=== PATIENT | male | born 1960 | race Caucasian/White ===

== ENCOUNTER 2023-05-06 17:28 | Inpatient (IN) | payer MEDICARE, MEDICAID, SELFPAY ==
[2023-05-06] VITALS (9 sets, daily range): BP systolic 124–154; BP diastolic 72–104; PULSE 87–123; RESP 16–27; TEMP 36.8–37.9; O2SAT 94–99; BMI 29.3; BMI 28.1
--- NOTE | 2023-05-06 17:39 | CT_ITS ---
STUDY: CT BRAIN WITHOUT CONTRAST REASON FOR EXAM: Male, 63 years old. altered MS RADIATION DOSAGE (If Supplied By Facility): CTDIvol = ( 44.99 ) mGy, DLP = ( 947.97 ) mGycm TECHNIQUE: Transaxial CT imaging of the brain was performed without administration of intravenous contrast material. Individualized dose optimization techniques were used for this CT. COMPARISON: No relevant priors. FINDINGS: Normal soft tissue structures. Healed right parietal craniotomy with subjacent encephalomalacia. There is severe cerebral atrophy with widening of the extra-axial spaces and ventricular dilatation. There are areas of decreased attenuation within the white matter tracts of the supratentorial brain, consistent with microvascular disease changes. Normal basal ganglia and thalami. Normal brainstem. Normal cerebellum. There is no intracranial hemorrhage. There are no findings of an acute ischemic infarction. Normal visualized paranasal sinuses. CT/Brain/Head without Contrast IMPRESSION: Chronic involutional changes of the brain. Electronically Signed: Pete Ramos MD at 18:48 EDT ,
--- NOTE | 2023-05-06 17:39 | EKG12_ITS ---
Test Reason : Blood Pressure : / mmHG Vent. Rate : 123 BPM Atrial Rate : 123 BPM P-R Int : 150 ms QRS Dur : 088 ms QT Int : 312 ms P-R-T Axes : 023 -12 005 degrees QTc Int : 446 ms Sinus tachycardia Inferior infarct , age undetermined Abnormal ECG Confirmed by JAMES ARNOLD, CAPRI ([id number]), newspaper managing editor CHARLOTTE ORDAZ ([id number]) on 05/09/2023 9:05:55 AM Referred By: Confirmed By:CAPRI RAMIREZ MD
--- NOTE | 2023-05-06 17:39 | RAD_ITS ---
STUDY: X-RAY - ABDOMEN/PELVIS REASON FOR EXAM: Male, 63 years old. eval urinary stent placement TECHNIQUE: Single AP view of the abdomen / pelvis. COMPARISON: None. FINDINGS: Normal visualized lung bases. There is an unremarkable bowel gas pattern. 2 calcific opacities project in the left kidney consistent with left renal stones. Left ureteral stent. No definite ureteral stone. Inferior vena cava filter. Normal visualized osseous structures. RAD/Abdomen Single View (Portable) IMPRESSION: 2 left renal stone with ureteral stent but no definite ureteral stone. Electronically Signed: Pete Ramos MD at 18:49 EDT ,
--- NOTE | 2023-05-06 17:41 | EX.ED.DYSGE1 ---
HPI History of Present Illness Chief Complaint: Alt LOC Informant: patient and family (daughter) Onset/Context/Timing Onset: Days (6) Context: Gradual Onset Timing: Continuous Quality: confused, weak Location: all over Current Severity: Severe Maximum Severity: Severe Narrative Narrative: 63-year-old with liver cancer, hepatitis C, hepatitis B, and hepatic cirrhosis comes from a residential has been deemed terminal, daughter decided to start hospice care this morning, then patient and his confused state in the past 6 days said that he wanted compressions if they would be necessary, she felt guilty, and had him transported here to see if we could run some tests and find something that we could easily fix with regards to his new altered mental status. He has radiation beads not getting chemotherapy. He has had several traumatic brain hemorrhages in the past, potentially a stroke, he has left hemiparesis that is not new, but he was getting around in a wheelchair himself 2 weeks ago. This is a major change. Patient is not able to provide any history, when asked about pain he denies having any anywhere. He denies feeling sick to his stomach and denies feeling dyspneic. Past medical history also includes a couple of traumatic intracranial hemorrhages, and a recent ureteral stent being placed due to large renal/ureteral stone and a history of infection that was treated. Stent placed by Dr. Goodrich at [facility] in [place]. [facility] Medical History Acute kidney failure, unspecified Anxiety disorder, unspecified COVID-19 Essential (primary) hypertension Hemiplegia and hemiparesis following cerebral infarction affecting left non-dominant side Insomnia, unspecified Liver cell carcinoma Major depressive disorder, single episode, unspecified Obstructive and reflux uropathy, unspecified Other ascites Other disorders of urea cycle metabolism Other pancytopenia Personal history of traumatic brain injury Pneumonia, unspecified organism Presence of other specified functional implants Type 2 diabetes mellitus without complications Unspecified cirrhosis of liver Unspecified symptoms and signs involving cognitive functions following cerebral infarction Unspecified viral hepatitis B without hepatic coma Unspecified viral hepatitis C without hepatic coma Urinary tract infection, site not specified Home Medications alfuzosin 10 mg tablet,extended release 24 hr (Uroxatral) 10 mg PO DAILY 05/06/23 [History Last Taken Unknown] buspirone 5 mg tablet 5 mg PO BID 05/06/23 [History Last Taken Unknown] escitalopram oxalate 10 mg tablet (Lexapro) 10 mg PO DAILY 05/06/23 [History Last Taken Unknown] furosemide 20 mg tablet 20 mg PO BID 05/06/23 [History Last Taken Unknown] insulin glargine 100 unit/mL (3 mL) subcutaneous pen (Lantus Solostar U-100 Insulin) 40 unit subcut DAILY 05/06/23 [History Last Taken Unknown] lactulose 10 gram/15 mL oral solution 30 ml PO .qid 05/06/23 [History Last Taken Unknown] lisinopril 20 mg tablet 20 mg PO BID 05/06/23 [History Last Taken Unknown] lorazepam 0.5 mg tablet (Ativan) 0.5 mg PO Q4H PRN anxiety 05/06/23 [History Last Taken Unknown] metformin 1,000 mg tablet 1,000 mg PO BID 05/06/23 [History Last Taken Unknown] mirtazapine 15 mg tablet (Remeron) 7.5 mg PO DAILY 05/06/23 [History Last Taken Unknown] oxycodone 5 mg tablet 5 mg PO Q6H PRN pain/ sob 05/06/23 [History Last Taken Unknown] potassium chloride 20 mEq tablet,extended release 20 meq PO DAILY 05/06/23 [History Last Taken Unknown] tamsulosin 0.4 mg capsule 0.4 mg PO QHS 05/06/23 [History Last Taken Unknown] trazodone 50 mg tablet 50 mg PO QHS 05/06/23 [History Last Taken Unknown] Allergy/AdvReac Type Severity Reaction Status Date / Time acetaminophen [From Tylenol] AdvReac PT UNABLE Verified 05/06/23 17:30 TO RESPOND-NEEDS F/U codeine AdvReac PT UNABLE Verified 05/06/23 17:30 TO RESPOND-NEEDS F/U Social History Smoking Status: Smoker, status unknown EXAM Physical Exam Const Vital Signs: 05/06/23 17:30 05/06/23 17:53 05/06/23 18:33 Temperature 100.2 F H 98.5 F Temperature Source Oral Temporal Pulse Rate 123 H 119 H Respiratory Rate 21 H 22 H Blood Pressure 154/104 H 141/88 H Blood Pressure Mean 120 105 Pulse Ox 96 95 97 Oxygen Delivery Method Room Air Room Air Room Air Positive well nourished and well developed Constitutional Narrative: Appears very weak and altered, eyes are open, follows commands, confused, GCS 14. General Appearance ED: well developed HEENT Reports dry mucous membranes normocephalic and atraumatic Mouth ED: Yes dry mucous membranes Mouth: dry mucous membranes Eyes PERRL and EOMs intact bilaterally Neck full ROM and supple Resp normal respiratory effort and clear to auscultation bilaterally Cardio regular rate, regular rhythm and no murmurs Rate: tachycardic GI non-tender GI Narrative: Distended, soft Auscultation: normoactive bowel sounds Palpation: soft Back/Spine no CVA tenderness General Back: other FROM Extremity normal to inspection General Extremety ED: Negative for edema, pulses abnormal or tenderness General Extremity: Negative for edema or pulses abnormal Neuro CN's II-XII intact bilaterally and no sensory deficits noted Neuro Narrative: Not able to move left arm or left leg, he is able to move the right arm and leg but not able to hold up against gravity on either 1. Sensorium / Orientation: awake, alert and orientation impaired Psych Psych Narrative: Flat affect Skin no rashes or lesions noted and no wounds General Skin Exam: jaundice MDM MDM MDM Narrative Medical decision making narrative: Septic work-up obtained in addition to an ammonia level which is normal, and a CT of the head, I reviewed the images and the report are basically negative for any acute, and I agree with it. Chest x-ray 1 view shows some atelectasis in the left lower lobe. No consolidation or infiltrate to my interpretation. Radiology in agreement. Also performed a KUB evaluating stent, it is in good place, my interpretation of 1 view. The rest of his work-up basically is consistent with a urinary tract infection, slightly elevated lactate, slightly abnormal creatinine unknown what his baseline is he does not have old labs here, he does have a trend toward a leftward shift on his white blood count at the high end of normal, and the rest of his blood counts are okay. He does show signs of malnutrition and hyperbilirubinemia which I am sure is not new given his history of cirrhosis. Started on Rocephin. Cultures obtained. Given 500 cc of fluid, I do not think he needs more than that he is not hypotensive and his heart rate is improved. He is clinically stable. Discussed with daughter ERIC. She is not exactly sure if she wants him to be on hospice or not. She is concerned that since he has an infection, he may get better and prefers that he be admitted. Hospitalist requested I discussed with urology, we do not have urology on-call here tia (will be available in the morning) so I discussed with Dr. Goodrich's partner at [facility] who was on-call. He states specifically the stent is not to be removed since that we could cause a ureteral obstruction due to the stone, and because the infection to get worse, he recommends IV antibiotics and close outpatient follow-up when his infection is better. Lab Data Attestation: I reviewed the patient's lab results. Labs: Laboratory Results - last 24 hr 05/06/23 05/06/23 17:48 19:25 WBC 10.5 RBC 3.54 L Hgb 11.1 L Hct 34.1 L MCV 96.3 H MCH 31.4 MCHC 32.6 RDW Std Deviation 56.4 H RDW Coeff of Ani 15.9 H Plt Count 188 MPV 9.0 Immature Gran % (Auto) 0.600 Neut % (Auto) 85.7 H Lymph % (Auto) 3.5 L [place] % (Auto) 9.1 Eos % (Auto) 0.8 Baso % (Auto) 0.3 Absolute Neuts (auto) 9.0 H Absolute Lymphs (auto) 0.37 L Nucleated RBC % 0 Differential Comment SCANNED PT 18.4 H INR 1.5 APTT 34.0 Sodium 135 L Potassium 4.1 Chloride 106 Carbon Dioxide 25.0 Anion Gap 4 L BUN 18 Creatinine 1.34 H Estim Creat Clear Calc 53.17 Est GFR (MDRD) Af Amer 69 Est GFR (MDRD) Non-Af 57 L BUN/Creatinine Ratio 13.4 Glucose 169 H Lactic Acid 2.1 H* Calcium 9.2 Total Bilirubin 2.70 H AST 41 H ALT 26 Alkaline Phosphatase 106 Ammonia 14.0 Troponin I High Sens 6 Total Protein 7.5 Albumin 1.8 L Globulin 5.7 H Albumin/Globulin Ratio 0.3 L Urine Color Yellow Urine Clarity Cloudy Urine pH 6.5 Ur Specific [place] 1.015 Urine Protein 100 H Urine Glucose (UA) Normal Urine Ketones Negative Urine Occult Blood 250 H Urine Nitrite Positive H Urine Bilirubin Negative Urine Urobilinogen 4 H Ur Leukocyte Esterase 500 H Urine RBC 0 SEEN Urine WBC >100 SEEN Ur Squamous Epith Cells 0 SEEN Urine Bacteria 0 SEEN Urine Mucus 0 SEEN Radiography Diagnostic Testing: Clinical Impression(s) from Imaging Studies Brain CT 05/06/23 17:39 IMPRESSION: Chronic involutional changes of the brain. Electronically Signed: Pete Ramos MD at 18:48 EDT Reading Location ID and State: [id number] / [employer] , Service support , KUB X-Ray 05/06/23 17:39 IMPRESSION: 2 left renal stone with ureteral stent but no definite ureteral stone. Electronically Signed: Pete Ramos MD at 18:49 EDT Reading Location ID and State: [id number] / [employer] , Service support , Chest X-Ray 05/06/23 18:12 IMPRESSION: Left lower lobe discoid atelectasis or scarring. Electronically Signed: Pete Ramos MD at 18:50 EDT Reading Location ID and State: [id number] / [employer] , Service support , Rhythm Strip Rhythm Strip: Sinus Tach Rate: 120 Ectopy: None EKG Initial EKG: Attestation: I personally reviewed and interpreted this EKG as follows: Interpretation: No Acute Injury Pattern and Sinus Tachycardia (otherwise unremarkable) Management Discussion w/another healthcare provider: Hospitalist Discharge Plan Dx/Rx/DC Orders Clinical Impression: Complicated urinary tract infection, Hepatic cirrhosis, Acute metabolic encephalopathy Disposition Disposition: Acute Care [facility]
--- NOTE | 2023-05-06 17:46 | NURSING ---
NO OLD EKGS
[2023-05-06 18:01] LABS: Absolute Lymphocyte Count 0.37 X10^3/uL (0.83-4.51); Basophil# 0.03 X10^3/uL; Basophil% 0.3 % (0-1); Eosinophil# 0.08 X10^3/uL; Eosinophils% 0.8 % (0-5); Hematocrit 34.1 % (40-54); Hemoglobin 11.1 g/dL (13.0-16.5); Lymphocyte # 0.37 X10^3/ul (0.83-4.51); Lymphocyte % 3.5 % (19-41); Mean Corp Hgb Conc 32.6 g/dL (32-36); Mean Corpuscular Hgb 31.4 pg (27.0-32.0); Mean Corpuscular Volume 96.3 fL (80-94); Monocyte# 0.96 X10^3/uL; Monocyte% 9.1 % (0-10); NRBC Flagged by Analyzer 0 % (0-5); Neutrophil # 9.02 X10^3/uL (2.7-7.7); Neutrophil % 85.7 % (47-70); POSITIVE DIFFERENTIAL YES; Platelet Count 188 K/mm3 (150-450); RBC Distribution Width CV 15.9 % (11.6-14.6); RBC Distribution Width SD 56.4 fl (35.1-43.9); Red Blood Count 3.54 M/mm3 (4.6-6.2); White Blood Count 10.5 K/mm3 (4.4-11.0)
[2023-05-06 18:02] LABS: Differential Indicated SCAN CRITERIA MET
[2023-05-06 18:10] LABS: International Normalized Ratio 1.5; Prothrombin Time (Protime)PT. 18.4 SECONDS (11.7-14.9)
--- NOTE | 2023-05-06 18:12 | RAD_ITS ---
STUDY: X-RAY CHEST REASON FOR EXAM: Male, 63 years old. fever TECHNIQUE: Single AP portable view of the chest. COMPARISON: None. FINDINGS: Linear opacity in the lower left lung consistent with discoid atelectasis or scarring. Slightly elevated right hemidiaphragm. Normal size heart. Normal mediastinum and brunilda. Normal visualized pulmonary arteries. Normal visualized aortic arch and descending thoracic aorta. Normal visualized thoracic spine. Normal visualized ribs, clavicles, and shoulders. There is no demonstrated abnormality of the visualized soft tissue structures of the upper abdomen. RAD/Chest 1 View (Portable) IMPRESSION: Left lower lobe discoid atelectasis or scarring. Electronically Signed: Pete Raoms MD at 18:50 EDT ,
[2023-05-06 18:23] LABS: ALB/GLOB Ratio 0.3 RATIO (0.9-2.4); AST(SGOT) 41 U/L (15-37); Alanine Aminotransfer ALT/SGPT 26 U/L (16-61); Albumin, Serum 1.8 g/dL (3.2-5.0); Alkaline Phosphatase 106 U/L (45-117); Anion Gap 4 (5-15); BUN 18 mg/dL (7-18); BUN/Creat Ratio 13.4 RATIO (10-20); Calcium,Total 9.2 mg/dL (8.5-10.1); Chloride 106 mmol/L (98-107); Creatinine, Serum 1.34 mg/dL (0.70-1.30); EST Glomerular Filtration Rate 57 mL/min (>60); Est Glom Filt Rate - Afr Amer 69 mL/min (>60); Estimated Creatinine Clearance 53.17 ml/min; Globulin 5.7 g/dL (2.2-4.2); Glucose 169 mg/dL (74-106); Potassium 4.1 mmol/L (3.5-5.1); Protein, Total 7.5 g/dL (6.4-8.2); Sodium Level 135 mmol/L (136-145); Troponin-I HS 6 pg/mL (3.0-78.0)
[2023-05-06 18:28] LABS: Lactic Acid 2.1 mmol/L (0.4-1.9)
[2023-05-06 18:39] LABS: Differential Comment SCANNED
[2023-05-06 19:27] LABS: Bacteria 0 SEEN /hpf (None Seen); Mucous, Urine 0 SEEN /hpf (<or=2+); Red Blood Cells-Urine 0 SEEN /hpf (0-5); Squamous Epithelial Cells - UA 0 SEEN /hpf (0-5)
--- NOTE | 2023-05-06 19:29 | ED.RN ---
hospice called in for patient update.
[2023-05-06 19:31] LABS: Color, Urine Yellow (Yellow); Glucose, Dipstick Normal (Normal); Ketone-Dipstick Negative (Negative); Leukocyte Esterase-Dipstick 500 /ul (Negative); Nitrite-Dipstick Positive (Negative); Occult Blood-Urine 250 /ul (Negative); Protein-Dipstick 100 mg/dl (Negative); Specific Gravity, Urine 1.015 (1.002-1.030); Urine Bilirubin Dipstick Negative (Negative); Urine Clarity Cloudy (Clear); Urine Urobilinogen 4 mg/dl (Normal); Urine pH 6.5 (5.0 - 8.0)
[2023-05-06 19:39] LABS: White Blood Cells >100 SEEN /hpf (0-5)
--- NOTE | 2023-05-06 20:09 | PCM.HP.STD ---
HPI - General General Date of Admission: 05/06/23 Date of Service: 05/06/23 Chief Complaint: weakness HPI Narrative CHUCHO MCCORMICK, is a 63 M with a significant history of type 2 diabetes; liver cancer status post repeat beads radiation who was evaluated by hospice on the same day of presentation but stated that he wanted to be a full code presents to the emergency department with 1 week history of progressive worsening weakness. Associated with her symptoms is lethargy difficulty breathing is worse out. Also reportedly patient is not eating. However he is drinking. About a month ago he had a stent placed in his urinary system. Also he had a couple of stones in his urinary stent that needed to be blasted. Typically he is transferred by pivoting but per daughter who was at bedside stated that patient is too weak to pivot at this time. [facility] Medical History Acute kidney failure, unspecified Anxiety disorder, unspecified COVID-19 Essential (primary) hypertension Hemiplegia and hemiparesis following cerebral infarction affecting left non-dominant side Insomnia, unspecified Liver cell carcinoma Major depressive disorder, single episode, unspecified Obstructive and reflux uropathy, unspecified Other ascites Other disorders of urea cycle metabolism Other pancytopenia Personal history of traumatic brain injury Pneumonia, unspecified organism Presence of other specified functional implants Type 2 diabetes mellitus without complications Unspecified cirrhosis of liver Unspecified symptoms and signs involving cognitive functions following cerebral infarction Unspecified viral hepatitis B without hepatic coma Unspecified viral hepatitis C without hepatic coma Urinary tract infection, site not specified Home Medications alfuzosin 10 mg tablet,extended release 24 hr (Uroxatral) 10 mg PO DAILY 05/06/23 [History Last Taken Unknown] buspirone 5 mg tablet 5 mg PO BID 05/06/23 [History Last Taken Unknown] escitalopram oxalate 10 mg tablet (Lexapro) 10 mg PO DAILY 05/06/23 [History Last Taken Unknown] furosemide 20 mg tablet 20 mg PO BID 05/06/23 [History Last Taken Unknown] insulin glargine 100 unit/mL (3 mL) subcutaneous pen (Lantus Solostar U-100 Insulin) 40 unit subcut DAILY 05/06/23 [History Last Taken Unknown] lactulose 10 gram/15 mL oral solution 30 ml PO .qid 05/06/23 [History Last Taken Unknown] lisinopril 20 mg tablet 20 mg PO BID 05/06/23 [History Last Taken Unknown] lorazepam 0.5 mg tablet (Ativan) 0.5 mg PO Q4H PRN anxiety 05/06/23 [History Last Taken Unknown] metformin 1,000 mg tablet 1,000 mg PO BID 05/06/23 [History Last Taken Unknown] mirtazapine 15 mg tablet (Remeron) 7.5 mg PO DAILY 05/06/23 [History Last Taken Unknown] oxycodone 5 mg tablet 5 mg PO Q6H PRN pain/ sob 05/06/23 [History Last Taken Unknown] potassium chloride 20 mEq tablet,extended release 20 meq PO DAILY 05/06/23 [History Last Taken Unknown] tamsulosin 0.4 mg capsule 0.4 mg PO QHS 05/06/23 [History Last Taken Unknown] trazodone 50 mg tablet 50 mg PO QHS 05/06/23 [History Last Taken Unknown] Allergy/AdvReac Type Severity Reaction Status Date / Time acetaminophen [From Tylenol] AdvReac PT UNABLE Verified 05/06/23 17:30 TO RESPOND-NEEDS F/U codeine AdvReac PT UNABLE Verified 05/06/23 17:30 TO RESPOND-NEEDS F/U Family History Other Eye disease Hypertension Surgical History H/O craniotomy Social History Smoking Status: Smoker, status unknown ROS ROS Narrative Pertinent positives and pertinent negatives as noted in HPI. All other systems were reviewed and are negative Vital Signs Vital Signs Vital Signs: 05/06/23 17:30 05/06/23 17:53 05/06/23 18:33 Temperature 100.2 F H 98.5 F Temperature Source Oral Temporal Pulse Rate 123 H 119 H Respiratory Rate 21 H 22 H Blood Pressure 154/104 H 141/88 H Blood Pressure Mean 120 105 Pulse Ox 96 95 97 Oxygen Delivery Method Room Air Room Air Room Air Weight Weight: 87.5 kg Body Mass Index (BMI) 29.3 Physical Exam Narrative Physical exam: General: Sickly looking. Head: Normocephalic, atraumatic, no tenderness Eyes: Vision is grossly intact. EOMI ENT, no trauma, moist mucous membranes, no rhinorrhea Neck: Nontender, No thyromegaly. CVS: Regular rate and rhythm. S1-S2 present. No murmur, gallop or rub. Respiratory : clear to auscultation bilaterally, chest wall nontender Abdomen: Soft, nontender, nondistended, normal bowel sounds, no masses : Deferred Extremities: Nontender full range of motion, no trauma Skin: Normal color, no trauma, abrasions Neuro: Lethargic. Does not answer many questions. Psychiatry: Lethargic and not interactive Results Lab / Micro Data 05/07/23 05:20 05/07/23 05:20 Labs: Laboratory Results - last 24 hr 05/06/23 17:48: WBC 10.5, RBC 3.54 L, Hgb 11.1 L, Hct 34.1 L, MCV 96.3 H, MCH 31.4, MCHC 32.6, RDW Std Deviation 56.4 H, RDW Coeff of Ani 15.9 H, Plt Count 188, MPV 9.0, Immature Gran % (Auto) 0.600, Neut % (Auto) 85.7 H, Lymph % (Auto) 3.5 L, [place] % (Auto) 9.1, Eos % (Auto) 0.8, Baso % (Auto) 0.3, Absolute Neuts (auto) 9.0 H, Absolute Lymphs (auto) 0.37 L, Nucleated RBC % 0, Differential Comment SCANNED, PT 18.4 H, INR 1.5, APTT 34.0, Sodium 135 L, Potassium 4.1, Chloride 106, Carbon Dioxide 25.0, Anion Gap 4 L, BUN 18, Creatinine 1.34 H, Estim Creat Clear Calc 53.17, Est GFR (MDRD) Af Amer 69, Est GFR (MDRD) Non-Af 57 L, BUN/Creatinine Ratio 13.4, Glucose 169 H, Lactic Acid 2.1 H*, Calcium 9.2, Total Bilirubin 2.70 H, AST 41 H, ALT 26, Alkaline Phosphatase 106, Ammonia 14.0, Troponin I High Sens 6, Total Protein 7.5, Albumin 1.8 L, Globulin 5.7 H, Albumin/Globulin Ratio 0.3 L 05/06/23 19:25: Urine Color Yellow, Urine Clarity Cloudy, Urine pH 6.5, Ur Specific [place] 1.015, Urine Protein 100 H, Urine Glucose (UA) Normal, Urine Ketones Negative, Urine Occult Blood 250 H, Urine Nitrite Positive H, Urine Bilirubin Negative, Urine Urobilinogen 4 H, Ur Leukocyte Esterase 500 H, Urine RBC 0 SEEN, Urine WBC >100 SEEN, Ur Squamous Epith Cells 0 SEEN, Urine Bacteria 0 SEEN, Urine Mucus 0 SEEN Micro: Microbiology 05/06/23 17:47 Nasal Secretion SARS-CoV-2 & FLU Antigen (Rapid) - Final Rhythm Strip Rhythm Strip: Sinus Tach Rate: 120 Ectopy: None Radiology Impression Brain CT 05/06/23 17:39 IMPRESSION: Chronic involutional changes of the brain. Electronically Signed: Pete Ramos MD at 18:48 EDT Reading Location ID and State: [id number] , Service support , KUB X-Ray 05/06/23 17:39 IMPRESSION: 2 left renal stone with ureteral stent but no definite ureteral stone. Electronically Signed: Pete Ramos MD at 18:49 EDT Reading Location ID and State: [email or web address] / [employer] , Service support , Chest X-Ray 05/06/23 18:12 IMPRESSION: Left lower lobe discoid atelectasis or scarring. Electronically Signed: Pete Ramos MD at 18:50 EDT Reading Location ID and State: [id number] / [employer] , Service support , Assessment & Plan Assessment/Plan (1) Sepsis: QUALIFIERS: Sepsis acute organ dysfunction status: with acute organ dysfunction Sepsis type: sepsis due to unspecified organism Severe sepsis acute organ dysfunction type: encephalopathy Severe sepsis shock status: without septic shock Qualified Code(s): A41.9 - Sepsis, unspecified organism; R65.20 - Severe sepsis without septic shock; G93.40 - Encephalopathy, unspecified (2) Encephalopathy acute: (3) UTI (urinary tract infection): QUALIFIERS: Hematuria presence: without hematuria Urinary tract infection type: acute cystitis Qualified Code(s): N30.00 - Acute cystitis without hematuria PLAN: Plan Sepsis/acute infectious encephalopathy The patient presented with sepsis due to( UTI) with acute sepsis related organ dysfunction as evidenced by (lactic acidosis). SIRS criteria: Respiratory rate more than 20 Heart rate more than 90 organ dysfunction: Lactic acid of more than 2 (2.1 patient case) Bilirubin more than 2 mg/dL. Patient's bilirubin is 2.70. Of note patient has hepatic cancer. No previous records to compare with. INR is borderline at 1.5. Urinalysis abnormal. Urine culture ordered emergency department, follow. Trend lactates. Blood cultures ordered emergency department, trend. Rocephin started emergency department and continued Ammonia level is normal, trend. Hold all sedating medications. Keep patient n.p.o. until mentation improves. JOEL Hold home Lasix. IV fluids. Avoid nephrotoxins Trend BMP Diabetes mellitus Blood glucose is stable. Hold home basal insulin. Basal insulin Adjusted Monitor Accu-Cheks Correction scale insulin ordered. DVT prophylaxis: Subcu Lovenox ordered. Time spent in the patient's overall evaluation,decision-making process, review of diagnostic data, adjustment of management, discussion with other providers, nursing and ancillary staff involved in patient's care documentation, 64 minutes. Charges/Coding Visit Charges Inpatient E&M: 87606 [facility] L3
--- NOTE | 2023-05-06 20:16 | ED.RN ---
spoke with Melvi DOTSON at [facility]- update on pt being admitted-also RN reports pt as Full Code.
[2023-05-06] MEDS: Ceftriaxone 1 GM/50 ML BAG IV (20:17)
[2023-05-06 21:56] LABS: Reflex Lactate? Y
[2023-05-06 22:12] LABS: LDH 212 U/L (87-241)
[2023-05-06] MEDS: 0.9% Normal Saline 1,000 ML 75 ML IV (22:45)
[2023-05-06] MEDS: Insulin Lispro 100 UNIT/ML INSULN.PEN SC (22:52)
[2023-05-06 23:10] LABS: Bedside Glucose 163 mg/dL (74-106)
[2023-05-07] VITALS (11 sets, daily range): BP systolic 102–141; BP diastolic 65–87; PULSE 99–125; RESP 16–26; TEMP 36.3–37.1; O2SAT 94–100; BMI 28.1
[2023-05-07 05:31] LABS: Absolute Lymphocyte Count 0.31 X10^3/uL (0.83-4.51); Absolute Neutrophil Count 7.8 X10^3/uL (2.0-7.7); Basophil# 0.04 X10^3/uL; Basophil% 0.4 % (0-1); Eosinophil# 0.09 X10^3/uL; Hematocrit 33.9 % (40-54); Hemoglobin 10.7 g/dL (13.0-16.5); Lymphocyte # 0.31 X10^3/ul (0.83-4.51); Lymphocyte % 3.4 % (19-41); Mean Corp Hgb Conc 31.6 g/dL (32-36); Mean Corpuscular Hgb 30.7 pg (27.0-32.0); Mean Corpuscular Volume 97.1 fL (80-94); Mean Platelet Vol. 9.1 fl (6.2-12.0); Monocyte# 0.84 X10^3/uL; Monocyte% 9.2 % (0-10); NRBC Flagged by Analyzer 0 % (0-5); Neutrophil # 7.77 X10^3/uL (2.7-7.7); Neutrophil % 85.2 % (47-70); POSITIVE DIFFERENTIAL YES; Platelet Count 159 K/mm3 (150-450); RBC Distribution Width CV 16.1 % (11.6-14.6); RBC Distribution Width SD 57.6 fl (35.1-43.9); Red Blood Count 3.49 M/mm3 (4.6-6.2); White Blood Count 9.1 K/mm3 (4.4-11.0)
[2023-05-07 05:33] LABS: Differential Indicated SCAN CRITERIA MET
[2023-05-07 05:56] LABS: ALB/GLOB Ratio 0.3 RATIO (0.9-2.4); AST(SGOT) 33 U/L (15-37); Alanine Aminotransfer ALT/SGPT 22 U/L (16-61); Albumin, Serum 1.6 g/dL (3.2-5.0); Alkaline Phosphatase 97 U/L (45-117); Anion Gap 3 (5-15); BUN 20 mg/dL (7-18); BUN/Creat Ratio 17.5 RATIO (10-20); Calcium,Total 8.9 mg/dL (8.5-10.1); Chloride 111 mmol/L (98-107); Creatinine, Serum 1.14 mg/dL (0.70-1.30); EST Glomerular Filtration Rate 69 mL/min (>60); Est Glom Filt Rate - Afr Amer 83 mL/min (>60); Globulin 5.4 g/dL (2.2-4.2); Glucose 178 mg/dL (74-106); Potassium 4.4 mmol/L (3.5-5.1); Sodium Level 138 mmol/L (136-145); Thyroid Stim Hormone (TSH) 1.19 uIU/mL (0.358-3.74)
[2023-05-07] MEDS: CHLORHEXIDINE GLUC 2% CLOTH 1 EACH TOWELETTE TOPICAL (05:58)
[2023-05-07 06:02] LABS: Anisocytosis 1+; Macrocytosis 1+
--- NOTE | 2023-05-07 07:36 | PCM.PN.HOSP ---
Reason for Visit Reason for Visit: Diagnoses Sepsis, unspecified organism (05/06/23) Encephalopathy, unspecified (05/06/23) Acute cystitis without hematuria (05/06/23) Severe sepsis without septic shock (05/06/23) Objective Data Objective Data Vital Signs: Vital Signs Temp Pulse Resp BP Pulse Ox O2 Del Method 97.9 F 105 H 26 H 141/76 H 94 Room Air 05/07/23 04:00 05/07/23 07:04 05/07/23 07:04 05/07/23 07:04 05/07/23 07:04 05/07/23 07:04 Oxygen Delivery Method Room Air Weight: 185 lb 3.013 oz Body Mass Index (BMI) 28.1 Intake & Output: Intake and Output for Last 24 Hours 05/05/23 05/06/23 05/07/23 23:59 23:59 23:59 Intake Total 550 / 550 747.5 / 747.5 Output Total 150 / 150 Balance 550 / 550 597.5 / 597.5 Lab / Micro Data 05/07/23 05:20 05/07/23 05:20 Labs: Laboratory Results - last 24 hr 05/06/23 17:48: WBC 10.5, RBC 3.54 L, Hgb 11.1 L, Hct 34.1 L, MCV 96.3 H, MCH 31.4, MCHC 32.6, RDW Std Deviation 56.4 H, RDW Coeff of Ani 15.9 H, Plt Count 188, MPV 9.0, Immature Gran % (Auto) 0.600, Neut % (Auto) 85.7 H, Lymph % (Auto) 3.5 L, [place] % (Auto) 9.1, Eos % (Auto) 0.8, Baso % (Auto) 0.3, Absolute Neuts (auto) 9.0 H, Absolute Lymphs (auto) 0.37 L, Nucleated RBC % 0, Differential Comment SCANNED, PT 18.4 H, INR 1.5, APTT 34.0, Sodium 135 L, Potassium 4.1, Chloride 106, Carbon Dioxide 25.0, Anion Gap 4 L, BUN 18, Creatinine 1.34 H, Estim Creat Clear Calc 53.17, Est GFR (MDRD) Af Amer 69, Est GFR (MDRD) Non-Af 57 L, BUN/Creatinine Ratio 13.4, Glucose 169 H, Lactic Acid 2.1 H*, Calcium 9.2, Total Bilirubin 2.70 H, AST 41 H, ALT 26, Alkaline Phosphatase 106, Ammonia 14.0, Troponin I High Sens 6, Total Protein 7.5, Albumin 1.8 L, Globulin 5.7 H, Albumin/Globulin Ratio 0.3 L 05/06/23 19:25: Urine Color Yellow, Urine Clarity Cloudy, Urine pH 6.5, Ur Specific Owen 1.015, Urine Protein 100 H, Urine Glucose (UA) Normal, Urine Ketones Negative, Urine Occult Blood 250 H, Urine Nitrite Positive H, Urine Bilirubin Negative, Urine Urobilinogen 4 H, Ur Leukocyte Esterase 500 H, Urine RBC 0 SEEN, Urine WBC >100 SEEN, Ur Squamous Epith Cells 0 SEEN, Urine Bacteria 0 SEEN, Urine Mucus 0 SEEN 05/06/23 21:26: Lactate Dehydrogenase 212 05/06/23 22:30: Lactic Acid 2.0 05/06/23 22:48: POC Glucose 163 H 05/07/23 05:20: WBC 9.1, RBC 3.49 L, Hgb 10.7 L, Hct 33.9 L, MCV 97.1 H, MCH 30.7, MCHC 31.6 L, RDW Std Deviation 57.6 H, RDW Coeff of Ani 16.1 H, Plt Count 159, MPV 9.1, Immature Gran % (Auto) 0.800, Neut % (Auto) 85.2 H, Lymph % (Auto) 3.4 L, [place] % (Auto) 9.2, Eos % (Auto) 1.0, Baso % (Auto) 0.4, Absolute Neuts (auto) 7.8 H, Absolute Lymphs (auto) 0.31 L, Nucleated RBC % 0, Anisocytosis 1+, Macrocytosis 1+, Sodium 138, Potassium 4.4, Chloride 111 H, Carbon Dioxide 24.0, Anion Gap 3 L, BUN 20 H, Creatinine 1.14, Estim Creat Clear Calc 62.50, Est GFR (MDRD) Af Amer 83, Est GFR (MDRD) Non-Af 69, BUN/Creatinine Ratio 17.5, Glucose 178 H, Calcium 8.9, Total Bilirubin 2.20 H, AST 33, ALT 22, Alkaline Phosphatase 97, Total Protein 7.0, Albumin 1.6 L, Globulin 5.4 H, Albumin/Globulin Ratio 0.3 L, TSH 1.19 Micro: Microbiology 05/06/23 17:47 Nasal Secretion SARS-CoV-2 & FLU Antigen (Rapid) - Final Radiography Diagnostic Testing: Radiology Impression Brain CT 05/06/23 17:39 IMPRESSION: Chronic involutional changes of the brain. Electronically Signed: Pete Ramos MD at 18:48 EDT Reading Location ID and State: [id number] / [employer] Tel , Service support , KUB X-Ray 05/06/23 17:39 IMPRESSION: 2 left renal stone with ureteral stent but no definite ureteral stone. Electronically Signed: Pete Ramos MD at 18:49 EDT Reading Location ID and State: [id number] / [employer] Tel , Service support , Chest X-Ray 05/06/23 18:12 IMPRESSION: Left lower lobe discoid atelectasis or scarring. Electronically Signed: Pete Ramos MD at 18:50 EDT Reading Location ID and State: [id number] / [employer] Tel , Service support , Rhythm Strip Rhythm Strip: Sinus Tach Rate: 120 Ectopy: None Physical Exam Narrative History is limited as patient still confused, he states leave me alone. He easily gets irritable, angry, thrusting on the bed. He states his belly hurts and in fact everywhere including legs hurts. General: Awake but lethargy. Confused and disoriented to time and place. Not cooperative for exam. HEENT: Mild icterus. Atraumatic, PERRLA, EOMI, Normocephalic Oral: Oral mucosa dry. No Gingival or Mucosal Lesions/ Ulcerations Neck: Supple, No JVD, Negative Carotid Bruits Lungs: Air entry diminished in bilateral lung bases. No crepitation/rhonchi Cardiovascular: Sinus tachycardia, Normal S1, Normal S2, No murmurs Abdomen: Bowel Sounds sluggish, soft, mild nonspecific tenderness. Distended with ascites, not cooperative for fluid thrill : Voiding urine. 150 mill. No renal angle tenderness. No suprapubic tenderness. Extremities: Bilateral 2+ pitting below knee legs edema Skin: No rashes, No breakdown Musculoskeletal: Tenderness in both lower legs, ROM limited not cooperative but Neurological: Confused disoriented, detailed neuro exam unobtainable Psych/Mental Status: Soft whispering voice. Flat affect. Assessment & Plan Assessment/Plan (1) Sepsis: QUALIFIERS: Sepsis acute organ dysfunction status: with acute organ dysfunction Sepsis type: sepsis due to unspecified organism Severe sepsis acute organ dysfunction type: encephalopathy Severe sepsis shock status: without septic shock Qualified Code(s): A41.9 - Sepsis, unspecified organism; R65.20 - Severe sepsis without septic shock; G93.40 - Encephalopathy, unspecified (2) Encephalopathy acute: (3) UTI (urinary tract infection): QUALIFIERS: Hematuria presence: without hematuria Urinary tract infection type: acute cystitis Qualified Code(s): N30.00 - Acute cystitis without hematuria PLAN: Plan Patient was brought from senior care and altered mental status, confused state for 6 days prior to admission. He has history of chronic hep B, chronic hep C, cirrhosis with liver cancer. Patient is lethargic and worsening of shortness of breath. Couple months ago after episode of urinary stone. 1. Sepsis, exact focus unclear but possibly due to UTI: The patient presented with sepsis with clinical indicators of tachycardia, tachypnea due to unclear focus most probably UTI with acute sepsis-related organ dysfunction as evidenced by lactic acidosis 0.1 and total bilirubin, 2.7 and coagulopathy INR 1.5 but patient also has history of liver cancer and decompensated cirrhosis UA is abnormal, WBC more than 100 cells, nitrite positive. Blood culture both aerobic and anaerobic bottles positive for GPC in clusters. Patient empirically started on IV ceftriaxone and vancomycin. [employer] and ID consulted. Patient had history of complicated UTI, kidney stone that required stenting. 2. Acute encephalopathy multifactorial probably due to hepatic encephalopathy/metabolic/infectious encephalopathy from sepsis: Serum ammonia level normal but that has not exact indicator for clinical encephalopathy. Patient is n.p.o. we will start on diet mainly feeding by nursing staff because of mental alertness. Hold all sedating medications. Lactulose ordered. 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 It does not show acute intracranial abnormality. 3. History of chronic hep C, chronic hep B, decompensated cirrhosis with ascites, hepatic encephalopathy and liver cancer: Exact natural course of the disease, tumor biology and treatment unclear 4.Kidney dysfunction, unclear JOEL or CKD unclear staging: Patient admitted with BUN/creatinine 18/1.34. Repeat creatinine shows improvement 1.14. KUB x-ray shows 2 left renal stone with ureteral stent but no definite ureteral stone. Lasix on hold. Avoid nephrotoxins. Monitor kidney function, intake and output and electrolytes. 5. Diabetes mellitus type II: Glucose 178 in BMP. Accu-Cheks every 6 hourly. DVT prophylaxis: Subcu Lovenox ordered. Microbiology Past 72 Hours 05/06/23 17:51 Blood Culture (Wb) - Left Wrist Blood Culture - Preliminary 05/06/23 17:48 Blood Culture (Wb) - Anticubital Right Blood Culture - Preliminary 05/06/23 17:47 Nasal Secretion SARS-CoV-2 & FLU Antigen (Rapid) - Final Laboratory Results 05/06/23 17:48: WBC 10.5, RBC 3.54 L, Hgb 11.1 L, Hct 34.1 L, MCV 96.3 H, MCH 31.4, MCHC 32.6, RDW Std Deviation 56.4 H, RDW Coeff of Ani 15.9 H, Plt Count 188, MPV 9.0, Immature Gran % (Auto) 0.600, Neut % (Auto) 85.7 H, Lymph % (Auto) 3.5 L, [place] % (Auto) 9.1, Eos % (Auto) 0.8, Baso % (Auto) 0.3, Absolute Neuts (auto) 9.0 H, Absolute Lymphs (auto) 0.37 L, Nucleated RBC % 0, Differential Comment SCANNED, PT 18.4 H, INR 1.5, APTT 34.0, Sodium 135 L, Potassium 4.1, Chloride 106, Carbon Dioxide 25.0, Anion Gap 4 L, BUN 18, Creatinine 1.34 H, Estim Creat Clear Calc 53.17, Est GFR (MDRD) Af Amer 69, Est GFR (MDRD) Non-Af 57 L, BUN/Creatinine Ratio 13.4, Glucose 169 H, Lactic Acid 2.1 H*, Calcium 9.2, Total Bilirubin 2.70 H, AST 41 H, ALT 26, Alkaline Phosphatase 106, Ammonia 14.0, Troponin I High Sens 6, Total Protein 7.5, Albumin 1.8 L, Globulin 5.7 H, Albumin/Globulin Ratio 0.3 L 05/06/23 19:25: Urine Color Yellow, Urine Clarity Cloudy, Urine pH 6.5, Ur Specific [place] 1.015, Urine Protein 100 H, Urine Glucose (UA) Normal, Urine Ketones Negative, Urine Occult Blood 250 H, Urine Nitrite Positive H, Urine Bilirubin Negative, Urine Urobilinogen 4 H, Ur Leukocyte Esterase 500 H, Urine RBC 0 SEEN, Urine WBC >100 SEEN, Ur Squamous Epith Cells 0 SEEN, Urine Bacteria 0 SEEN, Urine Mucus 0 SEEN 05/06/23 21:26: Lactate Dehydrogenase 212 05/06/23 22:30: Lactic Acid 2.0 05/06/23 22:48: POC Glucose 163 H 05/07/23 05:20: WBC 9.1, RBC 3.49 L, Hgb 10.7 L, Hct 33.9 L, MCV 97.1 H, MCH 30.7, MCHC 31.6 L, RDW Std Deviation 57.6 H, RDW Coeff of Ani 16.1 H, Plt Count 159, MPV 9.1, Immature Gran % (Auto) 0.800, Neut % (Auto) 85.2 H, Lymph % (Auto) 3.4 L, [place] % (Auto) 9.2, Eos % (Auto) 1.0, Baso % (Auto) 0.4, Absolute Neuts (auto) 7.8 H, Absolute Lymphs (auto) 0.31 L, Nucleated RBC % 0, Anisocytosis 1+, Macrocytosis 1+, Sodium 138, Potassium 4.4, Chloride 111 H, Carbon Dioxide 24.0, Anion Gap 3 L, BUN 20 H, Creatinine 1.14, Estim Creat Clear Calc 62.50, Est GFR (MDRD) Af Amer 83, Est GFR (MDRD) Non-Af 69, BUN/Creatinine Ratio 17.5, Glucose 178 H, Calcium 8.9, Total Bilirubin 2.20 H, AST 33, ALT 22, Alkaline Phosphatase 97, Total Protein 7.0, Albumin 1.6 L, Globulin 5.4 H, Albumin/Globulin Ratio 0.3 L, TSH 1.19 05/07/23 08:29: POC Glucose 160 H Clinical Impression(s) from Imaging Studies Brain CT 05/06/23 17:39 IMPRESSION: Chronic involutional changes of the brain. KUB X-Ray 05/06/23 17:39 IMPRESSION: 2 left renal stone with ureteral stent but no definite ureteral stone. Chest X-Ray 05/06/23 18:12 IMPRESSION: Left lower lobe discoid atelectasis or scarring. Charges/Coding Visit Charges Inpatient E&M: 37635 Subs Hosp L3
--- NOTE | 2023-05-07 08:42 | EX.PCM.CONCC ---
Assessment & Plan Assessment/Plan (1) Sepsis: QUALIFIERS: Sepsis acute organ dysfunction status: with acute organ dysfunction Sepsis type: sepsis due to unspecified organism Severe sepsis acute organ dysfunction type: encephalopathy Severe sepsis shock status: without septic shock Qualified Code(s): A41.9 - Sepsis, unspecified organism; R65.20 - Severe sepsis without septic shock; G93.40 - Encephalopathy, unspecified PLAN: Plan RECOMMENDATIONS: 1. Continue empiric antimicrobials. ID consultation is pending. 2. Gentle IV fluid hydration. 3. Continue appropriate DVT prophylaxis. 4. Mobilize patient as tolerated. 5. Given that the patient remains hemodynamically stable on room air, we will sign off from a critical care perspective. IMPRESSIONS: 1. Sepsis The patient presented to the hospital with sepsis due to probable urinary tract source of infection with acute sepsis related organ dysfunction as evidenced by lactic acidemia and hyperbilirubinemia. The patient has a history of a complicated urinary tract infection requiring stenting in the past. The patient remains on appropriate antimicrobials and did receive supplemental IV fluid hydration. He is otherwise hemodynamically stable on room air. 2. Encephalopathy Most likely metabolic in etiology related to underlying infection. Continue supportive measures as noted above. Continue to hold sedating medications. 3. History of chronic hepatitis C/decompensated cirrhosis/hepatocellular carcinoma Complicates care, management, recovery and prognosis. Continue supportive measures as noted above. Recommend ongoing goals of care discussion with the patient's family. This note was generated with [employer] dictation software. It may contain incorrect words, spelling, and punctuation that were not noted in checking the note before signing. HPI Consult Data Date of Consult: 05/08/23 HPI Narrative Reason for Consultation: Sepsis HPI Narrative: The patient is a 63-year-old male, with a history as outlined below, who presented to the emergency department via EMS on May 06 with increasing lethargy. According to documentation, the patient has an underlying diagnosis of hepatocellular carcinoma and cirrhosis, which was deemed to be terminal recently. He was subsequently enrolled in hospice care services. On presentation to the emergency department, the patient was noted to have a low-grade fever and was tachycardic and tachypneic. He was, however, hemodynamically stable. Initial laboratory evaluation revealed no evidence of a leukocytosis. Chemistry profile was notable for a creatinine of 1.34. Lactate was elevated at 2.1. Total bili was increased at 2.7 with an AST of 41. Ammonia level was noted to be 14. TSH was within normal limits. Urine analysis was positive for nitrites and leukocyte esterase. Head CT revealed chronic involutional changes of the brain. Chest x-ray demonstrated left lower lobe atelectasis. The patient received supplemental IV fluid hydration and was initiated on antimicrobials. He was then admitted to the medical intensive care unit for further management. [facility] Medical History Acute kidney failure, unspecified Anxiety disorder, unspecified COVID-19 Essential (primary) hypertension Hemiplegia and hemiparesis following cerebral infarction affecting left non-dominant side Insomnia, unspecified Liver cell carcinoma Major depressive disorder, single episode, unspecified Obstructive and reflux uropathy, unspecified Other ascites Other disorders of urea cycle metabolism Other pancytopenia Personal history of traumatic brain injury Pneumonia, unspecified organism Presence of other specified functional implants Type 2 diabetes mellitus without complications Unspecified cirrhosis of liver Unspecified symptoms and signs involving cognitive functions following cerebral infarction Unspecified viral hepatitis B without hepatic coma Unspecified viral hepatitis C without hepatic coma Urinary tract infection, site not specified Home Medications alfuzosin 10 mg tablet,extended release 24 hr (Uroxatral) 10 mg PO DAILY 05/06/23 [History Last Taken Unknown] buspirone 5 mg tablet 5 mg PO BID 05/06/23 [History Last Taken Unknown] escitalopram oxalate 10 mg tablet (Lexapro) 10 mg PO DAILY 05/06/23 [History Last Taken Unknown] furosemide 20 mg tablet 20 mg PO BID 05/06/23 [History Last Taken Unknown] insulin glargine 100 unit/mL (3 mL) subcutaneous pen (Lantus Solostar U-100 Insulin) 40 unit subcut DAILY 05/06/23 [History Last Taken Unknown] lactulose 10 gram/15 mL oral solution 30 ml PO .qid 05/06/23 [History Last Taken Unknown] lisinopril 20 mg tablet 20 mg PO BID 05/06/23 [History Last Taken Unknown] lorazepam 0.5 mg tablet (Ativan) 0.5 mg PO Q4H PRN anxiety 05/06/23 [History Last Taken Unknown] metformin 1,000 mg tablet 1,000 mg PO BID 05/06/23 [History Last Taken Unknown] mirtazapine 15 mg tablet (Remeron) 7.5 mg PO DAILY 05/06/23 [History Last Taken Unknown] oxycodone 5 mg tablet 5 mg PO Q6H PRN pain/ sob 05/06/23 [History Last Taken Unknown] potassium chloride 20 mEq tablet,extended release 20 meq PO DAILY 05/06/23 [History Last Taken Unknown] tamsulosin 0.4 mg capsule 0.4 mg PO QHS 05/06/23 [History Last Taken Unknown] trazodone 50 mg tablet 50 mg PO QHS 05/06/23 [History Last Taken Unknown] Allergy/AdvReac Type Severity Reaction Status Date / Time acetaminophen [From Tylenol] AdvReac PT UNABLE Verified 05/06/23 17:30 TO RESPOND-NEEDS F/U codeine AdvReac PT UNABLE Verified 05/06/23 17:30 TO RESPOND-NEEDS F/U Family History Other Eye disease Hypertension Surgical History H/O craniotomy Social History Smoking Status: Smoker, status unknown ROS Review of Systems ROS Unobtainable: due to mental status Physical Exam Const Constitutional Narrative: The patient arouses to verbal stimulation but will not answer any simple questions. General Appearance: lethargic and ill appearing Positive for chronically HEENT normocephalic and head/scalp atraumatic Eyes PERRL and EOMs intact bilaterally Neck supple General: trachea midline Chest inspection of chest normal Resp normal respiratory effort Auscultation: diminished lung sounds Cardio S1 normal heart sound and S2 normal heart sound Rate: tachycardic GI Inspection: abdominal distention Palpation: tender Extremity General Extremity: edema bilateral lower extremity Skin no rashes or lesions noted Neuro no focal motor deficits Psych Mood & Affect: flat affect Lab / Micro Data 05/07/23 05:20 05/07/23 05:20 Labs: Laboratory Results - last 24 hr 05/06/23 17:48: WBC 10.5, RBC 3.54 L, Hgb 11.1 L, Hct 34.1 L, MCV 96.3 H, MCH 31.4, MCHC 32.6, RDW Std Deviation 56.4 H, RDW Coeff of Ain 15.9 H, Plt Count 188, MPV 9.0, Immature Gran % (Auto) 0.600, Neut % (Auto) 85.7 H, Lymph % (Auto) 3.5 L, [place] % (Auto) 9.1, Eos % (Auto) 0.8, Baso % (Auto) 0.3, Absolute Neuts (auto) 9.0 H, Absolute Lymphs (auto) 0.37 L, Nucleated RBC % 0, Differential Comment SCANNED, PT 18.4 H, INR 1.5, APTT 34.0, Sodium 135 L, Potassium 4.1, Chloride 106, Carbon Dioxide 25.0, Anion Gap 4 L, BUN 18, Creatinine 1.34 H, Estim Creat Clear Calc 53.17, Est GFR (MDRD) Af Amer 69, Est GFR (MDRD) Non-Af 57 L, BUN/Creatinine Ratio 13.4, Glucose 169 H, Lactic Acid 2.1 H*, Calcium 9.2, Total Bilirubin 2.70 H, AST 41 H, ALT 26, Alkaline Phosphatase 106, Ammonia 14.0, Troponin I High Sens 6, Total Protein 7.5, Albumin 1.8 L, Globulin 5.7 H, Albumin/Globulin Ratio 0.3 L 05/06/23 19:25: Urine Color Yellow, Urine Clarity Cloudy, Urine pH 6.5, Ur Specific [place] 1.015, Urine Protein 100 H, Urine Glucose (UA) Normal, Urine Ketones Negative, Urine Occult Blood 250 H, Urine Nitrite Positive H, Urine Bilirubin Negative, Urine Urobilinogen 4 H, Ur Leukocyte Esterase 500 H, Urine RBC 0 SEEN, Urine WBC >100 SEEN, Ur Squamous Epith Cells 0 SEEN, Urine Bacteria 0 SEEN, Urine Mucus 0 SEEN 05/06/23 21:26: Lactate Dehydrogenase 212 05/06/23 22:30: Lactic Acid 2.0 05/06/23 22:48: POC Glucose 163 H 05/07/23 05:20: WBC 9.1, RBC 3.49 L, Hgb 10.7 L, Hct 33.9 L, MCV 97.1 H, MCH 30.7, MCHC 31.6 L, RDW Std Deviation 57.6 H, RDW Coeff of Ani 16.1 H, Plt Count 159, MPV 9.1, Immature Gran % (Auto) 0.800, Neut % (Auto) 85.2 H, Lymph % (Auto) 3.4 L, [place] % (Auto) 9.2, Eos % (Auto) 1.0, Baso % (Auto) 0.4, Absolute Neuts (auto) 7.8 H, Absolute Lymphs (auto) 0.31 L, Nucleated RBC % 0, Anisocytosis 1+, Macrocytosis 1+, Sodium 138, Potassium 4.4, Chloride 111 H, Carbon Dioxide 24.0, Anion Gap 3 L, BUN 20 H, Creatinine 1.14, Estim Creat Clear Calc 62.50, Est GFR (MDRD) Af Amer 83, Est GFR (MDRD) Non-Af 69, BUN/Creatinine Ratio 17.5, Glucose 178 H, Calcium 8.9, Total Bilirubin 2.20 H, AST 33, ALT 22, Alkaline Phosphatase 97, Total Protein 7.0, Albumin 1.6 L, Globulin 5.4 H, Albumin/Globulin Ratio 0.3 L, TSH 1.19 Micro: Microbiology 05/06/23 17:48 Blood Culture (Wb) - Anticubital Right Blood Culture - Preliminary 05/06/23 17:47 Nasal Secretion SARS-CoV-2 & FLU Antigen (Rapid) - Final Rhythm Strip Rhythm Strip: Sinus Tach Rate: 120 Ectopy: None Radiology Impression Brain CT 05/06/23 17:39 IMPRESSION: Chronic involutional changes of the brain. Electronically Signed: Pete Raoms MD at 18:48 EDT Reading Location ID and State: [id number] / [employer] Tel , Service support , KUB X-Ray 05/06/23 17:39 IMPRESSION: 2 left renal stone with ureteral stent but no definite ureteral stone. Electronically Signed: Pete Ramos MD at 18:49 EDT , Chest X-Ray 05/06/23 18:12 IMPRESSION: Left lower lobe discoid atelectasis or scarring. Electronically Signed: Pete Ramos MD at 18:50 EDT , Charges/Coding Visit Charges Inpatient E&M: 62184 Init Hosp L3
[2023-05-07 08:50] LABS: Bedside Glucose 160 mg/dL (74-106)
--- NOTE | 2023-05-07 09:16 | PCM.RX.CS ---
Consult Antibiotic Management Pharmacy has been consulted to manage selected antiobiotic: Vancomycin Type of Intervention Type of Consult: New start Suspected Infection Suspected Infection: Bacteremia Prior Doses of Antibiotics Prior Doses of Antibiotics Received/Current Regimen: VANCOMYCIN 1250 MG X 1 GIVEN 05/07/23 @ 0849 Labs Labs: Sodium 138 mmol/L (136-145) 05/07/23 05:20 Potassium 4.4 mmol/L (3.5-5.1) 05/07/23 05:20 Chloride 111 mmol/L (98-107) H 05/07/23 05:20 Carbon Dioxide 24.0 mmol/L (21.0-32.0) 05/07/23 05:20 Anion Gap 3 (5-15) L 05/07/23 05:20 BUN 20 mg/dL (7-18) H 05/07/23 05:20 Creatinine 1.14 mg/dL (0.70-1.30) 05/07/23 05:20 Est GFR (MDRD) Af Amer 83 mL/min (>60) 05/07/23 05:20 Est GFR (MDRD) Non-Af 69 mL/min (>60) 05/07/23 05:20 BUN/Creatinine Ratio 17.5 RATIO (10-20) 05/07/23 05:20 Glucose 178 mg/dL (74-106) H 05/07/23 05:20 Microbiology Microbiology: Microbiology 05/06/23 17:51 Blood Culture (Wb) - Left Wrist Blood Culture - Preliminary 05/06/23 17:48 Blood Culture (Wb) - Anticubital Right Blood Culture - Preliminary 05/06/23 17:47 Nasal Secretion SARS-CoV-2 & FLU Antigen (Rapid) - Final Dosing Weight Weight used for dosin kg Estimated Creatinine Clearance Estimated Creatinine Clearance: 62.5 Goal Trough Goal Trough: 15-20 mcg/mL Pharmacy Plan for Drug Dosing Pharmacy Plan for Drug Dosin MG IV X 1 GIVEN 05/07/23 @ 0849 Will continue with 1000 mg q12h dosing starting 05/07/23 @ 2100 based on weight and crcl, trough before 4th dose Pharmacy Service will continue to monitor and adjust dosing as required. Follow-Up Labs Follow-Up Labs: Trough: Vancomycin Date/Time Labs Ordered Labs to be done on [date and time ordered]: 05/08/23 @ 2030
[2023-05-07] MEDS: Insulin Glargine-YFGN 100 UNIT/ML Pen 10 UNIT SC (10:56)
[2023-05-07] MEDS: Enoxaparin 40 MG/0.4 ML Syringe SC (10:57)
[2023-05-07] MEDS: Insulin Lispro 100 UNIT/ML INSULN.PEN SC ×4 (10:57→21:34)
[2023-05-07] MEDS: 0.9% Normal Saline 1,000 ML 75 ML IV (10:58)
--- NOTE | 2023-05-07 11:34 | CASEMGMT ---
Discharge Planning Patient resides at the [facility]. Per his daughter, the plan is to return upon discharge. Return call placed to Blanche at [place]. She stated that patient had been enrolled in hospice services for approx 5hr before being sent to the ER. There were concerns with his combativeness in regards to being admitted to [facility]. Updates sent via [facility] and notified of the above. Palmira Tavera, Discharge Planning.
[2023-05-07 13:09] LABS: Bedside Glucose 159 mg/dL (74-106)
--- NOTE | 2023-05-07 15:04 | ECHOD_ITS ---
Reason For Study: MURMUR Procedure This was a 2D Doppler, Color Flow transthoracic echocardiogram. The study was technically difficult. Exam performed portable in patient room. Left Ventricle Normal LV size. Left ventricular systolic function is normal. The estimated ejection fraction is 60 %. No regional wall motion abnormalities noted. Right Ventricle Normal RV size. Normal systolic function. Atria Normal left atrium. Normal right atrium. Mitral Valve Normal mitral valve. Tricuspid Valve Normal tricuspid valve. Aortic Valve Trisinus/trileaflet aortic valve. Pulmonic Valve Normal pulmonic valve. Great Vessels Normal aortic root. The pulmonary artery is normal size. Normal inferior vena cava. Pericardium/Pleural No pericardial effusion. MMode/2D Measurements & Calculations LVIDd: 4.3 cm IVSd: 1.2 cm Ao root diam: 3.3 cm LVIDs: 2.4 cm LVPWd: 1.0 cm FS: 44.6 % LAV(MOD-bp): 39.4 ml LVAd ap4: 30.6 cm2 LVAd ap2: 22.9 cm2 LAV(MOD-bp) Indexed: 19.9 ml/m2 LVLd ap4: 7.9 cm LVLd ap2: 7.8 cm LAV(MOD-sp2): 36.5 ml EDV(MOD-sp4): 99.9 ml EDV(MOD-sp2): 57.6 ml LAV(MOD-sp4): 41.1 ml EDV(sp4-el): 101.1 ml EDV(sp2-el): 57.4 ml LVAs ap4: 19.8 cm2 LVAs ap2: 14.0 cm2 LVLs ap4: 6.8 cm LVLs ap2: 6.3 cm ESV(MOD-sp4): 47.6 ml ESV(MOD-sp2): 27.8 ml ESV(sp4-el): 48.9 ml ESV(sp2-el): 26.6 ml EF(MOD-sp4): 52.4 % EF(MOD-sp2): 51.8 % EF(sp4-el): 51.6 % SV(MOD-sp4): 52.4 ml SV(MOD-sp2): 29.9 ml SV(sp4-el): 52.2 ml LA dimension(2D): 3.6 cm LA A4 area: 15.3 cm2 RA A4 area: 8.1 cm2 Time Measurements MV dec time: 0.17 sec Doppler Measurements & Calculations MV E max sam: 58.3 cm/sec Lat Peak E' Sam: 7.6 cm/sec Med Peak E' Sam: 7.2 cm/sec MV A max sam: 73.7 cm/sec E/E' lat: 7.6 E/E' med: 8.1 MV E/A: 0.79 MV dec slope: 345.6 cm/sec2 Ao V2 max: 150.4 cm/sec LV V1 max: 121.5 cm/sec Ao max P.0 mmHg LV V1 max P.9 mmHg Ao V2 mean: 107.7 cm/sec LV V1 mean P.3 mmHg Ao mean P.1 mmHg LV V1 mean: 87.8 cm/sec Ao V2 VTI: 21.5 cm LV V1 VTI: 16.8 cm AV (velocity ratio): 0.78 PA V2 max: 129.9 cm/sec PA V2 mean: 88.2 cm/sec ECHO/Echo Complete Interpretation Summary Normal LV size. Left ventricular systolic function is normal. The estimated ejection fraction is 60 %. Structurally normal valves. Ordering Physician: Kelvin Cox Referring Physician: Naun Carter Performed By: Nereida Correa, FREDA, RVT
--- NOTE | 2023-05-07 16:02 | PCM.CONS.GEN ---
Assessment & Plan Assessment/Plan (1) Hepatic cirrhosis: (2) Acute metabolic encephalopathy: (3) Sepsis: QUALIFIERS: Sepsis type: sepsis due to unspecified organism Sepsis acute organ dysfunction status: with acute organ dysfunction Severe sepsis acute organ dysfunction type: encephalopathy Severe sepsis shock status: without septic shock Qualified Code(s): A41.9 - Sepsis, unspecified organism; R65.20 - Severe sepsis without septic shock; G93.40 - Encephalopathy, unspecified (4) UTI (urinary tract infection): QUALIFIERS: Urinary tract infection type: acute cystitis Hematuria presence: without hematuria Qualified Code(s): N30.00 - Acute cystitis without hematuria (5) MRSA bacteremia: PLAN: Will check repeat bcx and TTE. Some back pain, may need MRI if continues. On vanc for MRSA. On ceftriaxone for GNR uti. Will follow thank you HPI Consult Data Date of Consult: 05/07/23 HPI Narrative Reason for Consultation: bacteremia HPI Narrative: CHUCHO MCCORMICK, is a 63 M with liver cancer, T2DM, [facility] resident, recent urinary stent placement and stone treatment, had been made hospice yesterday, then reversed by his daughter due to new changes in mental status, weakness. Sent to [facility], admitted on vanc/ceftriaxone, feeling a little better today. C/o new back pain for past few days. Full ROS performed and neg except as noted above. [facility] Medical History Acute kidney failure, unspecified Anxiety disorder, unspecified COVID-19 Essential (primary) hypertension Hemiplegia and hemiparesis following cerebral infarction affecting left non-dominant side Insomnia, unspecified Liver cell carcinoma Major depressive disorder, single episode, unspecified Obstructive and reflux uropathy, unspecified Other ascites Other disorders of urea cycle metabolism Other pancytopenia Personal history of traumatic brain injury Pneumonia, unspecified organism Presence of other specified functional implants Type 2 diabetes mellitus without complications Unspecified cirrhosis of liver Unspecified symptoms and signs involving cognitive functions following cerebral infarction Unspecified viral hepatitis B without hepatic coma Unspecified viral hepatitis C without hepatic coma Urinary tract infection, site not specified Home Medications alfuzosin 10 mg tablet,extended release 24 hr (Uroxatral) 10 mg PO DAILY 05/06/23 [History Last Taken Unknown] buspirone 5 mg tablet 5 mg PO BID 05/06/23 [History Last Taken Unknown] escitalopram oxalate 10 mg tablet (Lexapro) 10 mg PO DAILY 05/06/23 [History Last Taken Unknown] furosemide 20 mg tablet 20 mg PO BID 05/06/23 [History Last Taken Unknown] insulin glargine 100 unit/mL (3 mL) subcutaneous pen (Lantus Solostar U-100 Insulin) 40 unit subcut DAILY 05/06/23 [History Last Taken Unknown] lactulose 10 gram/15 mL oral solution 30 ml PO .qid 05/06/23 [History Last Taken Unknown] lisinopril 20 mg tablet 20 mg PO BID 05/06/23 [History Last Taken Unknown] lorazepam 0.5 mg tablet (Ativan) 0.5 mg PO Q4H PRN anxiety 05/06/23 [History Last Taken Unknown] metformin 1,000 mg tablet 1,000 mg PO BID 05/06/23 [History Last Taken Unknown] mirtazapine 15 mg tablet (Remeron) 7.5 mg PO DAILY 05/06/23 [History Last Taken Unknown] oxycodone 5 mg tablet 5 mg PO Q6H PRN pain/ sob 05/06/23 [History Last Taken Unknown] potassium chloride 20 mEq tablet,extended release 20 meq PO DAILY 05/06/23 [History Last Taken Unknown] tamsulosin 0.4 mg capsule 0.4 mg PO QHS 05/06/23 [History Last Taken Unknown] trazodone 50 mg tablet 50 mg PO QHS 05/06/23 [History Last Taken Unknown] Allergy/AdvReac Type Severity Reaction Status Date / Time acetaminophen [From Tylenol] AdvReac PT UNABLE Verified 05/06/23 17:30 TO RESPOND-NEEDS F/U codeine AdvReac PT UNABLE Verified 05/06/23 17:30 TO RESPOND-NEEDS F/U Family History Other Eye disease Hypertension Surgical History H/O craniotomy Social History Smoking Status: Smoker, status unknown Physical Exam Const alert and no apparent distress Constitutional Narrative: oriented x2 General Appearance: cooperative and lethargic HEENT normocephalic and head/scalp atraumatic Eyes PERRL and EOMs intact bilaterally Neck supple and No nodes Resp normal air movement and clear to auscultation bilaterally Cardio regular rate and regular rhythm GI soft to palpation, non-tender and non-distended Extremity General Extremity: Negative for edema Skin no rashes or lesions noted Skin Narrative: no splinter hemorrhages on hands or feet. No focal spine tenderness to palpation Neuro CN's II-XII intact bilaterally Lab / Micro Data Attestation: I reviewed the patient's lab results. 05/07/23 05:20 05/07/23 05:20 Labs: Laboratory Results - last 24 hr 05/06/23 17:48: WBC 10.5, RBC 3.54 L, Hgb 11.1 L, Hct 34.1 L, MCV 96.3 H, MCH 31.4, MCHC 32.6, RDW Std Deviation 56.4 H, RDW Coeff of Ain 15.9 H, Plt Count 188, MPV 9.0, Immature Gran % (Auto) 0.600, Neut % (Auto) 85.7 H, Lymph % (Auto) 3.5 L, Amite % (Auto) 9.1, Eos % (Auto) 0.8, Baso % (Auto) 0.3, Absolute Neuts (auto) 9.0 H, Absolute Lymphs (auto) 0.37 L, Nucleated RBC % 0, Differential Comment SCANNED, PT 18.4 H, INR 1.5, APTT 34.0, Sodium 135 L, Potassium 4.1, Chloride 106, Carbon Dioxide 25.0, Anion Gap 4 L, BUN 18, Creatinine 1.34 H, Estim Creat Clear Calc 53.17, Est GFR (MDRD) Af Amer 69, Est GFR (MDRD) Non-Af 57 L, BUN/Creatinine Ratio 13.4, Glucose 169 H, Lactic Acid 2.1 H*, Calcium 9.2, Total Bilirubin 2.70 H, AST 41 H, ALT 26, Alkaline Phosphatase 106, Ammonia 14.0, Troponin I High Sens 6, Total Protein 7.5, Albumin 1.8 L, Globulin 5.7 H, Albumin/Globulin Ratio 0.3 L 05/06/23 19:25: Urine Color Yellow, Urine Clarity Cloudy, Urine pH 6.5, Ur Specific Palms 1.015, Urine Protein 100 H, Urine Glucose (UA) Normal, Urine Ketones Negative, Urine Occult Blood 250 H, Urine Nitrite Positive H, Urine Bilirubin Negative, Urine Urobilinogen 4 H, Ur Leukocyte Esterase 500 H, Urine RBC 0 SEEN, Urine WBC >100 SEEN, Ur Squamous Epith Cells 0 SEEN, Urine Bacteria 0 SEEN, Urine Mucus 0 SEEN 05/06/23 21:26: Lactate Dehydrogenase 212 05/06/23 22:30: Lactic Acid 2.0 05/06/23 22:48: POC Glucose 163 H 05/07/23 05:20: WBC 9.1, RBC 3.49 L, Hgb 10.7 L, Hct 33.9 L, MCV 97.1 H, MCH 30.7, MCHC 31.6 L, RDW Std Deviation 57.6 H, RDW Coeff of Ani 16.1 H, Plt Count 159, MPV 9.1, Immature Gran % (Auto) 0.800, Neut % (Auto) 85.2 H, Lymph % (Auto) 3.4 L, Amite % (Auto) 9.2, Eos % (Auto) 1.0, Baso % (Auto) 0.4, Absolute Neuts (auto) 7.8 H, Absolute Lymphs (auto) 0.31 L, Nucleated RBC % 0, Anisocytosis 1+, Macrocytosis 1+, Sodium 138, Potassium 4.4, Chloride 111 H, Carbon Dioxide 24.0, Anion Gap 3 L, BUN 20 H, Creatinine 1.14, Estim Creat Clear Calc 62.50, Est GFR (MDRD) Af Amer 83, Est GFR (MDRD) Non-Af 69, BUN/Creatinine Ratio 17.5, Glucose 178 H, Calcium 8.9, Total Bilirubin 2.20 H, AST 33, ALT 22, Alkaline Phosphatase 97, Total Protein 7.0, Albumin 1.6 L, Globulin 5.4 H, Albumin/Globulin Ratio 0.3 L, TSH 1.19 05/07/23 08:29: POC Glucose 160 H 05/07/23 12:52: POC Glucose 159 H Micro: Microbiology 05/06/23 17:48 Blood Culture (Wb) - Anticubital Right Bacteria Detection (PCR) - Final Meth. resistant Staph. aureus 05/06/23 17:48 Blood Culture (Wb) - Anticubital Right Blood Culture - Preliminary 05/06/23 19:25 Urine, Clean Catch Urine Culture - Preliminary Gram negative patricia 05/06/23 17:51 Blood Culture (Wb) - Left Wrist Blood Culture - Preliminary 05/06/23 17:47 Nasal Secretion SARS-CoV-2 & FLU Antigen (Rapid) - Final Rhythm Strip Rhythm Strip: Sinus Tach Rate: 120 Ectopy: None Radiology Impression Brain CT 05/06/23 17:39 IMPRESSION: Chronic involutional changes of the brain. Electronically Signed: Pete Ramos MD at 18:48 EDT , KUB X-Ray 05/06/23 17:39 IMPRESSION: 2 left renal stone with ureteral stent but no definite ureteral stone. Electronically Signed: Pete Ramos MD at 18:49 EDT , Chest X-Ray 05/06/23 18:12 IMPRESSION: Left lower lobe discoid atelectasis or scarring. Electronically Signed: Pete Ramos MD at 18:50 EDT ,
[2023-05-07 17:17] LABS: Bedside Glucose 194 mg/dL (74-106)
[2023-05-07] MEDS: Vancomycin IV 1,000 MG/200 ML BAG 200 MG IV (21:33)
[2023-05-07] MEDS: Ceftriaxone 1 GM/50 ML BAG IV (21:33)
[2023-05-07 22:26] LABS: Bedside Glucose 199 mg/dL (74-106)
[2023-05-07] MEDS: Morphine 2 MG/ML Syringe IV (22:54)
[2023-05-08 01:43] VITALS: BP 117/64; PULSE 123; RESP 18; TEMP 36.6; O2SAT 94
[2023-05-08 05:32] VITALS: BMI 28.7
[2023-05-08 06:25] VITALS: BP 119/64; PULSE 105; RESP 19; TEMP 36.4; O2SAT 94
[2023-05-08] MEDS: 0.9% Normal Saline 1,000 ML 75 ML IV ×2 (08:58→21:35)
[2023-05-08] MEDS: Insulin Glargine-YFGN 100 UNIT/ML Pen 10 UNIT SC (08:59)
[2023-05-08 09:00] VITALS: BP 110/62; PULSE 107; RESP 16; TEMP 37.6; O2SAT 94
[2023-05-08] MEDS: Insulin Lispro 100 UNIT/ML INSULN.PEN SC (09:00)
[2023-05-08] MEDS: Enoxaparin 40 MG/0.4 ML Syringe SC (09:00)
[2023-05-08] MEDS: Vancomycin IV 1,000 MG/200 ML BAG 200 MG IV (09:04)
[2023-05-08] MEDS: CHLORHEXIDINE GLUC 2% CLOTH 1 EACH TOWELETTE TOPICAL (09:04)
--- NOTE | 2023-05-08 09:51 | PN.ID_ITS ---
Physical Exam Narrative Says he is feeling bad. No fever. Const alert and no apparent distress Constitutional Narrative: More awake today Resp normal air movement and clear to auscultation bilaterally Cardio regular rate and regular rhythm GI soft to palpation, non-tender and non-distended Extremity General Extremity: Negative for edema Skin no rashes or lesions noted ID ID: Route of nutrition/ use of supplements: [] Nutritional Intake: [] IV Site: [] Riojas Catheter: [] Assessment & Plan Assessment/Plan (1) Hepatic cirrhosis: (2) Acute metabolic encephalopathy: (3) Sepsis: QUALIFIERS: Sepsis type: sepsis due to unspecified organism Sepsis acute organ dysfunction status: with acute organ dysfunction Severe sepsis acute organ dysfunction type: encephalopathy Severe sepsis shock status: without septic shock Qualified Code(s): A41.9 - Sepsis, unspecified organism; R65.20 - Severe sepsis without septic shock; G93.40 - Encephalopathy, unspecified (4) UTI (urinary tract infection): QUALIFIERS: Urinary tract infection type: acute cystitis Willy turia presence: without hematuria Qualified Code(s): N30.00 - Acute cystitis without hematuria (5) MRSA bacteremia: PLAN: Will check repeat bcx and has pending TTE. Some back pain, may need MRI if continues. On vanc for MRSA. On ceftriaxone for GNR uti. Will follow, Dr. Huff will cover for the rest of the week.
[2023-05-08 12:04] LABS: Bedside Glucose 118 mg/dL (74-106)
--- NOTE | 2023-05-08 14:16 | CASEMGMT ---
Discharge Planning Updates sent to [place] via [facility]. Palmira Tavera, Discharge Planning Asst.
[2023-05-08 15:00] VITALS: BP 132/80; PULSE 110; RESP 18; TEMP 36.9; O2SAT 94
[2023-05-08 17:59] LABS: Bedside Glucose 108 mg/dL (74-106)
[2023-05-08 21:00] VITALS: BP 133/69; PULSE 109; RESP 18; TEMP 37.9; O2SAT 95
[2023-05-08 21:13] LABS: Vancomycin, Trough Level 22.5 ug/mL (5.0-15.0)
[2023-05-08] MEDS: Ceftriaxone 1 GM/50 ML BAG IV (21:34)
[2023-05-08 22:07] LABS: Bedside Glucose 110 mg/dL (74-106)
--- NOTE | 2023-05-08 22:28 | PCM.RX.CS ---
Consult Antibiotic Management Pharmacy has been consulted to manage selected antiobiotic: Vancomycin Type of Intervention Type of Consult: Follow-up Suspected Infection Suspected Infection: Bacteremia Labs Labs: Sodium 138 mmol/L (136-145) 05/07/23 05:20 Potassium 4.4 mmol/L (3.5-5.1) 05/07/23 05:20 Chloride 111 mmol/L (98-107) H 05/07/23 05:20 Carbon Dioxide 24.0 mmol/L (21.0-32.0) 05/07/23 05:20 Anion Gap 3 (5-15) L 05/07/23 05:20 BUN 20 mg/dL (7-18) H 05/07/23 05:20 Creatinine 1.14 mg/dL (0.70-1.30) 05/07/23 05:20 Est GFR (MDRD) Af Amer 83 mL/min (>60) 05/07/23 05:20 Est GFR (MDRD) Non-Af 69 mL/min (>60) 05/07/23 05:20 BUN/Creatinine Ratio 17.5 RATIO (10-20) 05/07/23 05:20 Glucose 178 mg/dL (74-106) H 05/07/23 05:20 Vancomycin Trough 22.5 ug/mL (5.0-15.0) H 05/08/23 20:23 Microbiology Microbiology: Microbiology 05/06/23 17:51 Blood Culture (Wb) - Left Wrist Blood Culture - Preliminary Staphylococcus aureus 05/06/23 17:48 Blood Culture (Wb) - Anticubital Right Bacteria Detection (PCR) - Final Meth. resistant Staph. aureus 05/06/23 17:48 Blood Culture (Wb) - Anticubital Right Blood Culture - Preliminary Staphylococcus aureus 05/06/23 19:25 Urine, Clean Catch Urine Culture - Preliminary Proteus mirabilis Staphylococcus aureus 05/06/23 17:47 Nasal Secretion SARS-CoV-2 & FLU Antigen (Rapid) - Final Dosing Weight Weight used for dosin.6 kg Estimated Creatinine Clearance Estimated Creatinine Clearance: 62.5 Goal Trough Goal Trough: 15-20 mcg/mL Pharmacy Plan for Drug Dosing Pharmacy Plan for Drug Dosing: Vancomycin trough level of 22.5, drawn 11.25hrs post-dose, was high. The current dose was held. A random level will be drawn in 12 hours, and further dosing determined from that result. Pharmacy Service will continue to monitor and adjust dosing as required. Follow-Up Labs Follow-Up Labs: Trough: Vancomycin (random) Date/Time Labs Ordered Labs to be done on [date and time ordered]: 05/09/23 @0830 random
[2023-05-08 22:36] VITALS: TEMP 37.1
[2023-05-09 03:56] VITALS: BP 134/65; PULSE 90; RESP 16; TEMP 37; O2SAT 95
[2023-05-09] MEDS: Ondansetron 4 MG/2 ML Vial IV (04:05)
[2023-05-09 06:00] VITALS: BMI 29.2
[2023-05-09] MEDS: CHLORHEXIDINE GLUC 2% CLOTH 1 EACH TOWELETTE TOPICAL (08:12)
[2023-05-09] MEDS: Enoxaparin 40 MG/0.4 ML Syringe SC (08:13)
[2023-05-09 08:23] LABS: Bedside Glucose 123 mg/dL (74-106)
--- NOTE | 2023-05-09 08:26 | PN.HOSP_ITS ---
Reason for Visit Reason for Visit: Diagnoses Sepsis, unspecified organism (05/06/23) Methicillin resistant Staphylococcus aureus infection as the cause of diseases classified elsewhere (05/06/23) Encephalopathy, unspecified (05/06/23) Metabolic encephalopathy (05/06/23) Unspecified cirrhosis of liver (05/06/23) Acute cystitis without hematuria (05/06/23) Severe sepsis without septic shock (05/06/23) Bacteremia (05/06/23) Subjective Subjective Follow-up for altered mental status and sepsis. Patient is still drowsy very lethargic answers questions very softly and slowly. Hardly can tell his name and date. Objective Data Objective Data Vital Signs: Vital Signs Temp Pulse Resp BP Pulse Ox O2 Del Method 98.6 F 90 16 134/65 H 95 Room Air 05/09/23 03:56 05/09/23 03:56 05/09/23 03:56 05/09/23 03:56 05/09/23 03:56 05/09/23 03:56 Oxygen Delivery Method Room Air Weight: 192 lb 3.889 oz Body Mass Index (BMI) 29.2 Intake & Output: Intake and Output for Last 24 Hours 05/07/23 05/08/23 05/09/23 23:59 23:59 23:59 Intake Total 1311.25 / 1311.25 2446.25 / 2446.25 Output Total 150 / 150 250 / 250 150 / 150 Balance 1161.25 / 1161.25 2196.25 / 2196.25 -150 / -150 Lab / Micro Data 05/07/23 05:20 05/07/23 05:20 Labs: Laboratory Results - last 24 hr 05/08/23 11:45: POC Glucose 118 H 05/08/23 17:35: POC Glucose 108 H 05/08/23 20:23: Vancomycin Trough 22.5 H 05/08/23 21:29: POC Glucose 110 H 05/09/23 08:05: POC Glucose 123 H Micro: Microbiology 05/06/23 17:51 Blood Culture (Wb) - Left Wrist Blood Culture - Final Staphylococcus aureus 05/06/23 17:48 Blood Culture (Wb) - Anticubital Right Bacteria Detection (PCR) - Final Meth. resistant Staph. aureus 05/06/23 17:48 Blood Culture (Wb) - Anticubital Right Blood Culture - Final Meth. resistant Staph. aureus 05/06/23 19:25 Urine, Clean Catch Urine Culture - Preliminary Proteus mirabilis Staphylococcus aureus 05/06/23 17:47 Nasal Secretion SARS-CoV-2 & FLU Antigen (Rapid) - Final Radiography Diagnostic Testing: Radiology Impression Echocardiogram 05/07/23 15:04 Interpretation Summary Normal LV size. Left ventricular systolic function is normal. The estimated ejection fraction is 60 %. Structurally normal valves. Ordering Physician: Kelvin Cox Referring Physician: Naun Carter Performed By: Nereida Correa, RDCS, RVT Rhythm Strip Rhythm Strip: Sinus Tach Rate: 120 Ectopy: None Physical Exam Narrative History is limited as patient still confused, he states leave me alone. He easily gets irritable, angry, thrusting on the bed. He states his belly hurts and in fact everywhere including legs hurts. General: Awake but lethargy. Confused and disoriented to place. Not aware of the situation or circumstances. HEENT: Mild icterus. Atraumatic, PERRLA, EOMI, Normocephalic Oral: Oral mucosa dry. No Gingival or Mucosal Lesions/ Ulcerations Neck: Supple, No JVD, Negative Carotid Bruits Lungs: Air entry diminished in bilateral lung bases. No crepitation/rhonchi Cardiovascular: Sinus tachycardia, Normal S1, Normal S2, No murmurs Abdomen: Bowel Sounds sluggish, soft, mild nonspecific tenderness. Distended with ascites, not cooperative for fluid thrill : Voiding urine. 150 mill. No renal angle tenderness. No suprapubic tenderness. Extremities: Bilateral 2+ pitting below knee legs edema Skin: No rashes, No breakdown Musculoskeletal: Tenderness in both lower legs, ROM limited not cooperative but Neurological: Confused disoriented, detailed neuro exam unobtainable Psych/Mental Status: Soft whispering voice. Flat affect. Assessment & Plan Assessment/Plan (1) Sepsis: QUALIFIERS: Sepsis acute organ dysfunction status: with acute organ dysfunction Sepsis type: sepsis due to unspecified organism Severe sepsis acute organ dysfunction type: encephalopathy Severe sepsis shock status: without septic shock Qualified Code(s): A41.9 - Sepsis, unspecified organism; R65.20 - Severe sepsis without septic shock; G93.40 - Encephalopathy, unspecified (2) Encephalopathy acute: (3) UTI (urinary tract infection): QUALIFIERS: Hematuria presence: without hematuria Urinary tract infection type: acute cystitis Qualified Code(s): N30.00 - Acute cystitis without hematuria PLAN: Plan Patient was brought [facility] [place] [facility] and altered mental status, confused state for 6 days prior to admission. He has history of chronic hep B, chronic hep C, cirrhosis with liver cancer. Patient is lethargic and worsening of shortness of breath. Couple months ago after episode of urinary stone. 1. Sepsis, exact focus unclear but possibly due to UTI: The patient presented with sepsis with clinical indicators of tachycardia, tachypnea due to unclear focus most probably UTI with acute sepsis-related organ dysfunction as evidenced by lactic acidosis 0.1 and total bilirubin, 2.7 and coagulopathy INR 1.5 but patient also has history of liver cancer and decompensated cirrhosis UA is abnormal, WBC more than 100 cells, nitrite positive. Blood culture both aerobic and anaerobic bottles positive for GPC in clusters. Patient empirically started on IV ceftriaxone and vancomycin. Cable Installer Repairer and ID consulted. Patient had history of complicated UTI, kidney stone that required stenting. 05/09: MRSA bacteremia. Continue parenteral vancomycin closely follow renal function. Repeat blood culture ordered. Urine culture shows Proteus mirabilis and Staph aureus. Blood culture shows MRSA. Currently on ceftriaxone to cover Proteus from urine culture. 2. Acute encephalopathy multifactorial probably due to hepatic encephalopathy/metabolic/infectious encephalopathy from sepsis: Serum ammonia level normal but that has not exact indicator for clinical encephalopathy. Patient is n.p.o. we will start on diet mainly feeding by nursing staff because of mental alertness. Hold all sedating medications. Lactulose ordered. 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 It does not show acute intracranial abnormality. 05/09: No significant improvement in mental function. Lactulose ordered. 3. History of chronic hep C, chronic hep B, decompensated cirrhosis with a scites, hepatic encephalopathy and liver cancer: Exact natural course of the disease, tumor biology and treatment unclear 4.Kidney dysfunction, unclear JOEL or CKD unclear staging: Patient admitted with BUN/creatinine 18/1.34. Repeat creatinine shows improvement 1.14. KUB x-ray shows 2 left renal stone with ureteral stent but no definite ureteral stone. Lasix on hold. Avoid nephrotoxins. Monitor kidney function, intake and output and electrolytes. 5. Diabetes mellitus type II: Glucose 178 in BMP. Accu-Cheks every 6 hourly. DVT prophylaxis: Subcu Lovenox ordered. Microbiology Past 72 Hours 05/06/23 19:25 Urine, Clean Catch Urine Culture - Preliminary Proteus mirabilis Staphylococcus aureus 05/06/23 17:51 Blood Culture (Wb) - Left Wrist Blood Culture - Final Staphylococcus aureus 05/06/23 17:48 Blood Culture (Wb) - Anticubital Right Bacteria Detection ( PCR) - Final Meth. resistant Staph. aureus 05/06/23 17:48 Blood Culture (Wb) - Anticubital Right Blood Culture - Final Meth. resistant Staph. aureus 05/06/23 17:47 Nasal Secretion SARS-CoV-2 & FLU Antigen (Rapid) - Final Laboratory Results 05/08/23 20:23: Vancomycin Trough 22.5 H 05/08/23 21:29: POC Glucose 110 H 05/09/23 08:05: POC Glucose 123 H 05/09/23 08:30: Random Vancomycin 15.4 H 05/09/23 11:29: POC Glucose 145 H 05/09/23 16:14: POC Glucose 122 H Clinical Impression(s) from Imaging Studies Brain CT 05/06/23 17:39 IMPRESSION: Chronic involutional changes of the brain. KUB X-Ray 05/06/23 17:39 IMPRESSION: 2 left renal stone with ureteral stent but no definite ureteral stone. Chest X-Ray 05/06/23 18:12 IMPRESSION: Left lower lobe discoid atelectasis or scarring. Charges/Coding Visit Charges Inpatient E&M: 37109 Subs Hosp L2
[2023-05-09 09:20] LABS: Vancomycin, Random Level 15.4 ug/mL (0.0-15.0)
--- NOTE | 2023-05-09 09:54 | PCM.RX.CS ---
Consult Antibiotic Management Pharmacy has been consulted to manage selected antiobiotic: Vancomycin Type of Intervention Type of Consult: Follow-up Suspected Infection Suspected Infection: Bacteremia Prior Doses of Antibiotics Prior Doses of Antibiotics Received/Current Regimen: 1000mg iv q12h Labs Labs: Sodium 138 mmol/L (136-145) 05/07/23 05:20 Potassium 4.4 mmol/L (3.5-5.1) 05/07/23 05:20 Chloride 111 mmol/L (98-107) H 05/07/23 05:20 Carbon Dioxide 24.0 mmol/L (21.0-32.0) 05/07/23 05:20 Anion Gap 3 (5-15) L 05/07/23 05:20 BUN 20 mg/dL (7-18) H 05/07/23 05:20 Creatinine 1.14 mg/dL (0.70-1.30) 05/07/23 05:20 Est GFR (MDRD) Af Amer 83 mL/min (>60) 05/07/23 05:20 Est GFR (MDRD) Non-Af 69 mL/min (>60) 05/07/23 05:20 BUN/Creatinine Ratio 17.5 RATIO (10-20) 05/07/23 05:20 Glucose 178 mg/dL (74-106) H 05/07/23 05:20 Vancomycin Trough 22.5 ug/mL (5.0-15.0) H 05/08/23 20:23 Random Vancomycin 15.4 ug/mL (0.0-15.0) H 05/09/23 08:30 Microbiology Microbiology: Microbiology 05/06/23 19:25 Urine, Clean Catch Urine Culture - Preliminary Proteus mirabilis Staphylococcus aureus 05/06/23 17:51 Blood Culture (Wb) - Left Wrist Blood Culture - Final Staphylococcus aureus 05/06/23 17:48 Blood Culture (Wb) - Anticubital Right Bacteria Detection (PCR) - Final Meth. resistant Staph. aureus 05/06/23 17:48 Blood Culture (Wb) - Anticubital Right Blood Culture - Final Meth. resistant Staph. aureus 05/06/23 17:47 Nasal Secretion SARS-CoV-2 & FLU Antigen (Rapid) - Final Dosing Weight Weight used for dosin kg Estimated Creatinine Clearance Estimated Creatinine Clearance: 63 ml/min Pharmacy Plan for Drug Dosing Pharmacy Plan for Drug Dosing: Random level this AM 15.4 and in therapeutic range of 15-20mcg/ml. Recommend restarting vancomycin at a reduced dose of 750mg iv q12h. Trough level ordered for before 4th dose. Pharmacy Service will continue to monitor and adjust dosing as required. Follow-Up Labs Follow-Up Labs: Trough: Vancomycin (7.27.23 @2230 before 2300 dose)
[2023-05-09 09:57] VITALS: BP 139/81; PULSE 84; RESP 18; TEMP 36.8; O2SAT 97
--- NOTE | 2023-05-09 10:00 | PCM.PN.ID ---
ID ID: Route of nutrition/ use of supplements: [] Nutritional Intake: [] IV Site: [] [place] Catheter: [] Patient is responsive but very weak. Denies any specific pain. No cardiopulmonary distress. Currently on vancomycin plus ceftriaxone. No nausea or vomiting. Repeat blood cultures are pending. On exam patient is alert responsive but very weak oral mucosa is dry. Lungs are clear heart exam S1-S2 no murmurs appreciated. Abdomen is obese but soft Assessment & Plan Assessment/Plan (1) MRSA bacteremia: PLAN: Continue parenteral vancomycin and closely follow his renal function and repeat blood cultures. Currently on ceftriaxone to cover the Proteus from his urine culture. Continue supportive care.
[2023-05-09] MEDS: 0.9% Normal Saline 1,000 ML 75 ML IV (11:10)
[2023-05-09 11:46] LABS: Bedside Glucose 145 mg/dL (74-106)
[2023-05-09 16:32] LABS: Bedside Glucose 122 mg/dL (74-106)
[2023-05-09 21:00] VITALS: BP 136/69; PULSE 87; RESP 18; TEMP 36.6; O2SAT 93
[2023-05-09] MEDS: Ceftriaxone 1 GM/50 ML BAG IV (21:06)
[2023-05-09] MEDS: Lactulose 20 GM/30 ML UDC 10 GM PO (21:11)
[2023-05-09] MEDS: rifAXIMin 550 MG Tablet PO (21:12)
[2023-05-09 21:15] VITALS: BP 138/79; PULSE 94; RESP 16; TEMP 36.5; O2SAT 96
[2023-05-09 22:09] LABS: Bedside Glucose 114 mg/dL (74-106)
[2023-05-10] MEDS: 0.9% Normal Saline 1,000 ML 75 ML IV (00:04)
[2023-05-10 00:06] VITALS: BP 136/69; PULSE 86; RESP 16; TEMP 36.6; O2SAT 93
[2023-05-10 05:37] VITALS: BMI 29.5
[2023-05-10 05:46] VITALS: BP 124/70; PULSE 86; RESP 16; TEMP 36.4; O2SAT 93
[2023-05-10] MEDS: Lactulose 20 GM/30 ML UDC 10 GM PO (05:48)
[2023-05-10 05:56] LABS: Absolute Lymphocyte Count 0.31 X10^3/uL (0.83-4.51); Absolute Neutrophil Count 4.4 X10^3/uL (2.0-7.7); Basophil# 0.03 X10^3/uL; Basophil% 0.6 % (0-1); Eosinophil# 0.15 X10^3/uL; Eosinophils% 2.8 % (0-5); Hematocrit 27.1 % (40-54); Hemoglobin 8.4 g/dL (13.0-16.5); Lymphocyte # 0.31 X10^3/ul (0.83-4.51); Lymphocyte % 5.9 % (19-41); Mean Corpuscular Hgb 30.5 pg (27.0-32.0); Mean Corpuscular Volume 98.5 fL (80-94); Mean Platelet Vol. 9.4 fl (6.2-12.0); Monocyte% 7.6 % (0-10); NRBC Flagged by Analyzer 0 % (0-5); Neutrophil # 4.38 X10^3/uL (2.7-7.7); Neutrophil % 82.7 % (47-70); POSITIVE DIFFERENTIAL YES; Platelet Count 141 K/mm3 (150-450); RBC Distribution Width CV 16.3 % (11.6-14.6); RBC Distribution Width SD 58.6 fl (35.1-43.9); Red Blood Count 2.75 M/mm3 (4.6-6.2); White Blood Count 5.3 K/mm3 (4.4-11.0)
[2023-05-10 06:03] LABS: Differential Indicated SCAN CRITERIA MET
[2023-05-10 06:31] LABS: Anisocytosis 1+; Macrocytosis 1+; Platelet Estimate SLT DEC (ADEQ)
[2023-05-10 06:37] LABS: AST(SGOT) 50 U/L (15-37); Alanine Aminotransfer ALT/SGPT 29 U/L (16-61); Albumin, Serum 1.3 g/dL (3.2-5.0); Alkaline Phosphatase 88 U/L (45-117); Anion Gap 4 (5-15); BUN 29 mg/dL (7-18); BUN/Creat Ratio 27.6 RATIO (10-20); Calcium,Total 8.8 mg/dL (8.5-10.1); Chloride 113 mmol/L (98-107); Creatinine, Serum 1.05 mg/dL (0.70-1.30); EST Glomerular Filtration Rate 75 mL/min (>60); Est Glom Filt Rate - Afr Amer 91 mL/min (>60); Estimated Creatinine Clearance 67.86 ml/min; Globulin 4.9 g/dL (2.2-4.2); Glucose 125 mg/dL (74-106); Protein, Total 6.2 g/dL (6.4-8.2); Sodium Level 138 mmol/L (136-145)
[2023-05-10] MEDS: Insulin Glargine-YFGN 100 UNIT/ML Pen 10 UNIT SC (10:05)
[2023-05-10] MEDS: rifAXIMin 550 MG Tablet PO (10:06)
[2023-05-10] MEDS: Enoxaparin 40 MG/0.4 ML Syringe SC (10:06)
[2023-05-10 10:30] VITALS: BP 121/84; PULSE 90; RESP 16; TEMP 36.7; O2SAT 95
--- NOTE | 2023-05-10 10:37 | PCM.PN.HOSP ---
Reason for Visit Reason for Visit: Diagnoses Sepsis, unspecified organism (05/06/23) Methicillin resistant Staphylococcus aureus infection as the cause of diseases classified elsewhere (05/06/23) Encephalopathy, unspecified (05/06/23) Metabolic encephalopathy (05/06/23) Unspecified cirrhosis of liver (05/06/23) Acute cystitis without hematuria (05/06/23) Severe sepsis without septic shock (05/06/23) Bacteremia (05/06/23) Subjective Subjective Follow-up after sepsis and multiple complications of decompensated cirrhosis. Objective Data Objective Data Vital Signs: Vital Signs Temp Pulse Resp BP Pulse Ox O2 Del Method O2 Flow Rate 97.6 F L 86 16 124/70 H 93 Room Air 2 05/10/23 05:46 05/10/23 05:46 05/10/23 05:46 05/10/23 05:46 05/10/23 05:46 05/10/23 05:46 05/09/23 22:00 Oxygen Flow Rate (L/min) 2 Oxygen Delivery Method Room Air Weight: 194 lb 3.636 oz Body Mass Index (BMI) 29.5 Intake & Output: Intake and Output for Last 24 Hours 05/08/23 05/09/23 05/10/23 23:59 23:59 23:59 Intake Total 2446.25 / 2446.25 1925 / 1925 1432.5 / 1432.5 Output Total 250 / 250 150 / 300 450 / 450 Balance 2196.25 / 2196.25 1775 / 1625 982.5 / 982.5 Lab / Micro Data 05/10/23 04:56 05/10/23 04:56 Labs: Laboratory Results - last 24 hr 05/09/23 11:29: POC Glucose 145 H 05/09/23 16:14: POC Glucose 122 H 05/09/23 21:11: POC Glucose 114 H 05/10/23 04:56: WBC 5.3, RBC 2.75 L, Hgb 8.4 L, Hct 27.1 L, MCV 98.5 H, MCH 30.5, MCHC 31.0 L, RDW Std Deviation 58.6 H, RDW Coeff of Ani 16.3 H, Plt Count 141 L, MPV 9.4, Immature Gran % (Auto) 0.400, Neut % (Auto) 82.7 H, Lymph % (Auto) 5.9 L, [place] % (Auto) 7.6, Eos % (Auto) 2.8, Baso % (Auto) 0.6, Absolute Neuts (auto) 4.4, Absolute Lymphs (auto) 0.31 L, Nucleated RBC % 0, Platelet Estimate SLT DEC, Anisocytosis 1+, Macrocytosis 1+, Sodium 138, Potassium 4.0, Chloride 113 H, Carbon Dioxide 21.0, Anion Gap 4 L, BUN 29 H, Creatinine 1.05, Estim Creat Clear Calc 67.86, Est GFR (MDRD) Af Amer 91, Est GFR (MDRD) Non-Af 75, BUN/Creatinine Ratio 27.6 H, Glucose 125 H, Calcium 8.8, Total Bilirubin 1.50 H, Direct Bilirubin 0.80 H, AST 50 H, ALT 29, Alkaline Phosphatase 88, Total Protein 6.2 L, Albumin 1.3 L, Globulin 4.9 H Micro: Microbiology 05/06/23 19:25 Urine, Clean Catch Urine Culture - Preliminary Proteus mirabilis Staphylococcus aureus 05/06/23 17:51 Blood Culture (Wb) - Left Wrist Blood Culture - Final Staphylococcus aureus 05/06/23 17:48 Blood Culture (Wb) - Anticubital Right Bacteria Detection (PCR) - Final Meth. resistant Staph. aureus 05/06/23 17:48 Blood Culture (Wb) - Anticubital Right Blood Culture - Final Meth. resistant Staph. aureus 05/06/23 17:47 Nasal Secretion SARS-CoV-2 & FLU Antigen (Rapid) - Final Rhythm Strip Rhythm Strip: Sinus Tach Rate: 120 Ectopy: None Physical Exam Narrative Patient looks better. He is more awake. His voice is weak but he tells me his name. He winces when his legs are moved. I talked to the patient's daughter power of deputy attorney general for health. Physical exam General: Awake. Looks more alert. Still disoriented to place and time. Not aware of the situation or circumstances. HEENT: Mild icterus. Atraumatic, PERRLA, EOMI, Normocephalic Oral: Oral mucosa dry. No Gingival or Mucosal Lesions/ Ulcerations Neck: Supple, No JVD, Negative Carotid Bruits Lungs: Air entry diminished in bilateral lung bases. No crepitation/rhonchi Cardiovascular: Sinus tachycardia, Normal S1, Normal S2, No murmurs Abdomen: Bowel Sounds sluggish, soft, mild nonspecific tenderness. Distended with ascites, : Voiding urine. 150 mill. No renal angle tenderness. No suprapubic tenderness. Extremities: Bilateral 2+ pitting below knee legs edema Skin: No rashes, No breakdown Musculoskeletal: Tenderness in both lower legs, ROM limited not cooperative but Neurological: Confused disoriented, detailed neuro exam unobtainable Psych/Mental Status: Soft whispering voice. Flat affect. Assessment & Plan Assessment/Plan (1) Sepsis: QUALIFIERS: Sepsis type: sepsis due to unspecified organism Sepsis acute organ dysfunction status: with acute organ dysfunction Severe sepsis acute organ dysfunction type: encephalopathy Severe sepsis shock status: without septic shock Qualified Code(s): A41.9 - Sepsis, unspecified organism; R65.20 - Severe sepsis without septic shock; G93.40 - Encephalopathy, unspecified (2) Encephalopathy acute: (3) UTI (urinary tract infection): QUALIFIERS: Urinary tract infection type: acute cystitis Hematuria presence: without hematuria Qualified Code(s): N30.00 - Acute cystitis without hematuria PLAN: Plan Patient was brought from group home and altered mental status, confused state for 6 days prior to admission. He has history of chronic hep B, chronic hep C, cirrhosis with liver cancer. Patient is lethargic and worsening of shortness of breath. Couple months ago after episode of urinary stone. 1. Sepsis, exact focus unclear but possibly due to UTI: The patient presented with sepsis with clinical indicators of tachycardia, tachypnea due to unclear focus most probably UTI with acute sepsis-related organ dysfunction as evidenced by lactic acidosis 0.1 and total bilirubin, 2.7 and coagulopathy INR 1.5 but patient also has history of liver cancer and decompensated cirrhosis UA is abnormal, WBC more than 100 cells, nitrite positive. Blood culture both aerobic and anaerobic bottles positive for GPC in clusters. Patient empirically started on IV ceftriaxone and vancomycin. Tunnel Drier Operator and ID consulted. Patient had history of complicated UTI, kidney stone that required stenting. 05/09: MRSA bacteremia. Continue parenteral vancomycin closely follow renal function. Repeat blood culture ordered. Urine culture shows Proteus mirabilis and Staph aureus. Blood culture shows MRSA. Currently on ceftriaxone to cover Proteus from urine culture. 05/10: ID follow-up reviewed. Patient on IV vancomycin and ceftriaxone. 2. Acute encephalopathy multifactorial probably due to hepatic encephalopathy/metabolic/infectious encephalopathy from sepsis: Serum ammonia level normal but that has not exact indicator for clinical encephalopathy. Patient is n.p.o. we will start on diet mainly feeding by nursing staff because of mental alertness. Hold all sedating medications. Lactulose ordered. 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 It does not show acute intracranial abnormality. 05/09: No significant improvement in mental function. Lactulose ordered. 05/10: Patient is more awake and alert. Continue lactulose and Xifaxan. DC IV fluid. Subsurface Augmentee Elint Operator consult encourage oral diet. 3. History of chronic hep C, chronic hep B, decompensated cirrhosis with ascites, hepatic encephalopathy and liver cancer: Exact natural course of the disease, tumor biology and treatment unclear 4.Kidney dysfunction, unclear JOEL or CKD unclear staging: Patient admitted with BUN/creatinine 18/1.34. Repeat creatinine shows improvement 1.14. KUB x-ray shows 2 left renal stone with ureteral stent but no definite ureteral stone. Lasix on hold. Avoid nephrotoxins. Monitor kidney function, intake and output and electrolytes. 05/10: Creatinine got better. JOEL most likely prerenal from third volume spacing. 5. Acute anemia on anemia of chronic anemia, decompensated cirrhosis: Patient hemoglobin dropped from 11.1-8.4. Power of deputy attorney general is concerned and wanted PRBC transfusion but I said it is not recommended below hemoglobin 7 as per blood bank rule. It will add up more fluid overload and increase portal hypertension. Nevertheless, iron work-up reticulocyte panel, B12 and folic acid ordered. Iron infusion ordered after blood draw. Lovenox discontinued early. 5. Diabetes mellitus type II: Glucose 178 in BMP. Accu-Cheks every 6 hourly. DVT prophylaxis: Subcu Lovenox ordered. Microbiology Past 72 Hours 05/06/23 19:25 Urine, Clean Catch Urine Culture - Preliminary Proteus mirabilis Staphylococcus aureus 05/06/23 17:51 Blood Culture (Wb) - Left Wrist Blood Culture - Final Staphylococcus aureus 05/06/23 17:48 Blood Culture (Wb) - Anticubital Right Bacteria Detection (PCR) - Final Meth. resistant Staph. aureus 05/06/23 17:48 Blood Culture (Wb) - Anticubital Right Blood Culture - Final Meth. resistant Staph. aureus Laboratory Results 05/09/23 11:29: POC Glucose 145 H 05/09/23 16:14: POC Glucose 122 H 05/09/23 21:11: POC Glucose 114 H 05/10/23 04:56: WBC 5.3, RBC 2.75 L, Hgb 8.4 L, Hct 27.1 L, MCV 98.5 H, MCH 30.5, MCHC 31.0 L, RDW Std Deviation 58.6 H, RDW Coeff of Ani 16.3 H, Plt Count 141 L, MPV 9.4, Immature Gran % (Auto) 0.400, Neut % (Auto) 82.7 H, Lymph % (Auto) 5.9 L, [place] % (Auto) 7.6, Eos % (Auto) 2.8, Baso % (Auto) 0.6, Absolute Neuts (auto) 4.4, Absolute Lymphs (auto) 0.31 L, Nucleated RBC % 0, Platelet Estimate SLT DEC, Anisocytosis 1+, Macrocytosis 1+, Sodium 138, Potassium 4.0, Chloride 113 H, Carbon Dioxide 21.0, Anion Gap 4 L, BUN 29 H, Creatinine 1.05, Estim Creat Clear Calc 67.86, Est GFR (MDRD) Af Amer 91, Est GFR (MDRD) Non-Af 75, BUN/Creatinine Ratio 27.6 H, Glucose 125 H, Calcium 8.8, Total Bilirubin 1.50 H, Direct Bilirubin 0.80 H, AST 50 H, ALT 29, Alkaline Phosphatase 88, Total Protein 6.2 L, Albumin 1.3 L, Globulin 4.9 H Living will/advanced directive/end of life care: Patient does have living will or advanced directive. Her designated power of deputy attorney general for health is Margarita Scar Helms. I had a long discussion with her and gave the clinical update. We discussed natural course of cirrhosis and its complication and liver cancer. She states he had appointment with Dr. Schwarz oncologist who wanted to do some radiation beads not sure exact mode of treatment. He was DNR CC hospice care before admission she wanted treatment of complications of liver cirrhosis and sepsis and go back to DNR CC. Of all the options given full code DNR CC arrest and DNR CC she opted for DNR CC and good with oxygen. She is agreeable for hospice consult and same informed to the case advocate and community mental health social worker. Patient does want artificial life support including intubation, tube feed, ventilator and/chest compression, central venous catheter, vasopressor and DC shock if needed Total time spent in [id number] encounter in discussion of advanced directive 17 minutes. Clinical Impression(s) from Imaging Studies Brain CT 05/06/23 17:39 IMPRESSION: Chronic involutional changes of the brain. KUB X-Ray 05/06/23 17:39 IMPRESSION: 2 left renal stone with ureteral stent but no definite ureteral stone. Chest X-Ray 05/06/23 18:12 IMPRESSION: Left lower lobe discoid atelectasis or scarring. Charges/Coding Addendum Addendum: Total time of the visit including total time spent in counseling or coordination of care, (more than 50% of the total time, spent in obtaining medical information from nurses and other ancillary care providers,explaining to the patient about labs, imaging, diagnosis and management of active complex medical conditions), discussion with ID, clinical discussion with patient's daughter regarding diagnosis, its course, natural history complications, review of labs and imaging is 50 minutes. Visit Charges Inpatient E&M: 25058 Init Hosp L3 Procedures Hospitalists Procedures: 11044 Advncd Care Plan 30 Min
--- NOTE | 2023-05-10 10:50 | CASEMGMT ---
Physician indicated patient's daughter Scar was open to Hospice for patient. JANNETH called Scar. Introduced self and role at [facility]. Scar said she would like patient to return to [facility]. Scar would like a call when patient will be discharged. JANNETH received a return call from Scar. She asked if physician could order a liver panel. Scar said that [facility] does not want patient there because he has Hepatitis C. JANNETH told her that JANNETH will pass this along to the physician. This message was passed along to the physician. Dagmar SALAS
[2023-05-10 10:54] LABS: Bedside Glucose 135 mg/dL (74-106)
[2023-05-10 11:37] LABS: Platelet Count 138 K/mm3 (150-450); RET-HE 34.5 pg (30-35); Reticulocyte Count 3.38 % (0.5-1.5)
[2023-05-10 11:45] LABS: Vitamin B12 762 pg/mL (211-911)
[2023-05-10 12:11] LABS: Ferritin 436 ng/mL (26-388); Iron Binding Capacity,Total 164 ug/dL (250-450)
[2023-05-10 14:20] LABS: Bedside Glucose 141 mg/dL (74-106)
[2023-05-10 16:37] VITALS: BP 154/84; PULSE 108; RESP 16; TEMP 36.6; O2SAT 95
[2023-05-10 17:10] LABS: Bedside Glucose 157 mg/dL (74-106)
[2023-05-10 21:27] VITALS: BP 155/81; PULSE 102; RESP 18; TEMP 36.6; O2SAT 94
[2023-05-10] MEDS: Ceftriaxone 1 GM/50 ML BAG IV (21:41)
[2023-05-10 23:05] LABS: Vancomycin, Trough Level 23.2 ug/mL (5.0-15.0)
--- NOTE | 2023-05-10 23:28 | PCM.RX.CS ---
Consult Antibiotic Management Pharmacy has been consulted to manage selected antiobiotic: Vancomycin Type of Intervention Type of Consult: Follow-up Suspected Infection Suspected Infection: Bacteremia Labs Labs: Sodium 138 mmol/L (136-145) 05/10/23 04:56 Potassium 4.0 mmol/L (3.5-5.1) 05/10/23 04:56 Chloride 113 mmol/L (98-107) H 05/10/23 04:56 Carbon Dioxide 21.0 mmol/L (21.0-32.0) 05/10/23 04:56 Anion Gap 4 (5-15) L 05/10/23 04:56 BUN 29 mg/dL (7-18) H 05/10/23 04:56 Creatinine 1.05 mg/dL (0.70-1.30) 05/10/23 04:56 Est GFR (MDRD) Af Amer 91 mL/min (>60) 05/10/23 04:56 Est GFR (MDRD) Non-Af 75 mL/min (>60) 05/10/23 04:56 BUN/Creatinine Ratio 27.6 RATIO (10-20) H 05/10/23 04:56 Glucose 125 mg/dL (74-106) H 05/10/23 04:56 Vancomycin Trough 23.2 ug/mL (5.0-15.0) H 05/10/23 22:27 Random Vancomycin 15.4 ug/mL (0.0-15.0) H 05/09/23 08:30 Microbiology Microbiology: Microbiology 05/08/23 10:00 Blood Culture (Wb) - Anticubital Left Blood Culture - Preliminary No growth in 48 hours. 05/06/23 19:25 Urine, Clean Catch Urine Culture - Preliminary Proteus mirabilis Staphylococcus aureus 05/06/23 17:51 Blood Culture (Wb) - Left Wrist Blood Culture - Final Staphylococcus aureus 05/06/23 17:48 Blood Culture (Wb) - Anticubital Right Bacteria Detection (PCR) - Final Meth. resistant Staph. aureus 05/06/23 17:48 Blood Culture (Wb) - Anticubital Right Blood Culture - Final Meth. resistant Staph. aureus 05/06/23 17:47 Nasal Secretion SARS-CoV-2 & FLU Antigen (Rapid) - Final Goal Trough Goal Trough: 15-20 mcg/mL Pharmacy Plan for Drug Dosing Pharmacy Plan for Drug Dosing: VANCOMYCIN LEVEL RECEIVED Current Vancomycin Dose: 750mg Q12H Number of Doses Received: 750mg x3 Vancomycin Level: 23.2 Hours Since Last Dose: 11 Renal Function: sCr 1.05 Renal Function Trend: stable Vancomycin Plan/Comments: HOLD Vancomycin dose due to SUPRAtherapeutic vancomycin level Pending Level: Random Vancomycin level @ 1030 05/11/23 Pharmacy Service will continue to monitor and adjust dosing as required. Follow-Up Labs Follow-Up Labs: Trough: Vancomycin Date/Time Labs Ordered Labs to be done on [date and time ordered]: 05/11/23 1030
[2023-05-10 23:48] LABS: Bedside Glucose 145 mg/dL (74-106)
[2023-05-11] MEDS: 0.9% Saline Lock 10 ML Syringe IV (02:10)
[2023-05-11 03:30] VITALS: BP 141/75; PULSE 83; RESP 18; TEMP 36.4; O2SAT 96
[2023-05-11 06:00] VITALS: BMI 29.6
[2023-05-11 06:16] LABS: Absolute Lymphocyte Count 0.35 X10^3/uL (0.83-4.51); Absolute Neutrophil Count 4.8 X10^3/uL (2.0-7.7); Basophil# 0.03 X10^3/uL; Basophil% 0.5 % (0-1); Eosinophils% 1.7 % (0-5); Hematocrit 27.7 % (40-54); Hemoglobin 8.7 g/dL (13.0-16.5); Lymphocyte # 0.35 X10^3/ul (0.83-4.51); Mean Corp Hgb Conc 31.4 g/dL (32-36); Mean Corpuscular Volume 98.6 fL (80-94); Mean Platelet Vol. 9.2 fl (6.2-12.0); Monocyte# 0.49 X10^3/uL; Monocyte% 8.4 % (0-10); NRBC Flagged by Analyzer 0 % (0-5); Neutrophil # 4.84 X10^3/uL (2.7-7.7); Neutrophil % 82.7 % (47-70); POSITIVE DIFFERENTIAL YES; Platelet Count 146 K/mm3 (150-450); RBC Distribution Width CV 16.4 % (11.6-14.6); RBC Distribution Width SD 58.5 fl (35.1-43.9); Red Blood Count 2.81 M/mm3 (4.6-6.2); White Blood Count 5.9 K/mm3 (4.4-11.0)
[2023-05-11 06:53] LABS: AST(SGOT) 38 U/L (15-37); Alanine Aminotransfer ALT/SGPT 26 U/L (16-61); Albumin, Serum 1.3 g/dL (3.2-5.0); Alkaline Phosphatase 85 U/L (45-117); Anion Gap 4 (5-15); BUN 30 mg/dL (7-18); Bilirubin, Direct 0.54 mg/dL (0.00-0.30); Calcium,Total 9.3 mg/dL (8.5-10.1); Chloride 114 mmol/L (98-107); Creatinine, Serum 1.11 mg/dL (0.70-1.30); EST Glomerular Filtration Rate 71 mL/min (>60); Est Glom Filt Rate - Afr Amer 86 mL/min (>60); Estimated Creatinine Clearance 64.19 ml/min; Globulin 5.2 g/dL (2.2-4.2); Glucose 138 mg/dL (74-106); Protein, Total 6.5 g/dL (6.4-8.2); Sodium Level 140 mmol/L (136-145)
[2023-05-11 07:15] LABS: Differential Indicated SCAN CRITERIA MET
[2023-05-11 08:38] LABS: Differential Comment SCANNED
--- NOTE | 2023-05-11 08:50 | PCM.TXEXTCAR ---
Diet Diet Order/Speech Therapy: 05/10/23 13:59 NPO [Diet: Nothing Per Oral] Is pt able to select menu?: No Routine Orders/Code Status Suppository Type: Dulcolax 10mg Suppository Frequency: Daily PRN [facility] Wound(s) bilat outer forearms: Wound Type: Skin Tear Therapies Weight Bearing: Weight bearing as tolerated Extremity Affected:: Bilateral Lower Physical Therapy: Eval and Treat Occupational Therapy: Eval and Treat Speech Therapy: Eval and Treat Problem/Diagnosis (1) Sepsis: Status: Acute Code(s): A41.9 - Sepsis, unspecified organism (2) Encephalopathy acute: Status: Acute Code(s): G93.40 - Encephalopathy, unspecified (3) UTI (urinary tract infection): Status: Acute Code(s): N39.0 - Urinary tract infection, site not specified Plan Patient was brought from retirement and altered mental status, confused state for 6 days prior to admission. He has history of chronic hep B, chronic hep C, cirrhosis with liver cancer. Patient is lethargic and worsening of shortness of breath. Couple months ago after episode of urinary stone. 1. Sepsis, exact focus unclear but possibly due to UTI: The patient presented with sepsis with clinical indicators of tachycardia, tachypnea due to unclear focus most probably UTI with acute sepsis-related organ dysfunction as evidenced by lactic acidosis 0.1 and total bilirubin, 2.7 and coagulopathy INR 1.5 but patient also has history of liver cancer and decompensated cirrhosis UA is abnormal, WBC more than 100 cells, nitrite positive. Blood culture both aerobic and anaerobic bottles positive for GPC in clusters. Patient empirically started on IV ceftriaxone and vancomycin. Emergency Room Registered Nurse and ID consulted. Patient had history of complicated UTI, kidney stone that required stenting. 05/09: MRSA bacteremia. Continue parenteral vancomycin closely follow renal function. Repeat blood culture ordered. Urine culture shows Proteus mirabilis and Staph aureus. Blood culture shows MRSA. Currently on ceftriaxone to cover Proteus from urine culture. 05/10: ID follow-up reviewed. Patient on IV vancomycin and ceftriaxone. 2. Acute encephalopathy multifactorial probably due to hepatic encephalopathy/metabolic/infectious encephalopathy from sepsis: Serum ammonia level normal but that has not exact indicator for clinical encephalopathy. Patient is n.p.o. we will start on diet mainly feeding by nursing staff because of mental alertness. Hold all sedating medications. Lactulose ordered. 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 It does not show acute intracranial abnormality. 05/09: No significant improvement in mental function. Lactulose ordered. 05/10: Patient is more awake and alert. Continue lactulose and Xifaxan. DC IV fluid. Envelope Stamping Machine Operator consult encourage oral diet. 3. History of chronic hep C, chronic hep B, decompensated cirrhosis with ascites, hepatic encephalopathy and liver cancer: Exact natural course of the disease, tumor biology and treatment unclear 4.Kidney dysfunction, unclear JOEL or CKD unclear staging: Patient admitted with BUN/creatinine 18/1.34. Repeat creatinine shows improvement 1.14. KUB x-ray shows 2 left renal stone with ureteral stent but no definite ureteral stone. Lasix on hold. Avoid nephrotoxins. Monitor kidney function, intake and output and electrolytes. 05/10: Creatinine got better. JOEL most likely prerenal from third volume spacing. 5. Acute anemia on anemia of chronic anemia, decompensated cirrhosis: Patient hemoglobin dropped from 11.1-8.4. Power of attorney lawyer is concerned and wanted PRBC transfusion but I said it is not recommended below hemoglobin 7 as per blood bank rule. It will add up more fluid overload and increase portal hypertension. Nevertheless, iron work-up reticulocyte panel, B12 and folic acid ordered. Iron infusion ordered after blood draw. Lovenox discontinued early. 5. Diabetes mellitus type II: Glucose 178 in BMP. Accu-Cheks every 6 hourly. DVT prophylaxis: Subcu Lovenox ordered. Microbiology Past 72 Hours 05/06/23 19:25 Urine, Clean Catch Urine Culture - Preliminary Proteus mirabilis Staphylococcus aureus 05/06/23 17:51 Blood Culture (Wb) - Left Wrist Blood Culture - Final Staphylococcus aureus 05/06/23 17:48 Blood Culture (Wb) - Anticubital Right Bacteria Detection (PCR) - Final Meth. resistant Staph. aureus 05/06/23 17:48 Blood Culture (Wb) - Anticubital Right Blood Culture - Final Meth. resistant Staph. aureus Laboratory Results 05/09/23 11:29: POC Glucose 145 H 05/09/23 16:14: POC Glucose 122 H 05/09/23 21:11: POC Glucose 114 H 07/27/23 04:56: WBC 5.3, RBC 2.75 L, Hgb 8.4 L, Hct 27.1 L, MCV 98.5 H, MCH 30.5, MCHC 31.0 L, RDW Std Deviation 58.6 H, RDW Coeff of Ani 16.3 H, Plt Count 141 L, MPV 9.4, Immature Gran % (Auto) 0.400, Neut % (Auto) 82.7 H, Lymph % (Auto) 5.9 L, Coke % (Auto) 7.6, Eos % (Auto) 2.8, Baso % (Auto) 0.6, Absolute Neuts (auto) 4.4, Absolute Lymphs (auto) 0.31 L, Nucleated RBC % 0, Platelet Estimate SLT DEC, Anisocytosis 1+, Macrocytosis 1+, Sodium 138, Potassium 4.0, Chloride 113 H, Carbon Dioxide 21.0, Anion Gap 4 L, BUN 29 H, Creatinine 1.05, Estim Creat Clear Calc 67.86, Est GFR (MDRD) Af Amer 91, Est GFR (MDRD) Non-Af 75, BUN/Creatinine Ratio 27.6 H, Glucose 125 H, Calcium 8.8, Total Bilirubin 1.50 H, Direct Bilirubin 0.80 H, AST 50 H, ALT 29, Alkaline Phosphatase 88, Total Protein 6.2 L, Albumin 1.3 L, Globulin 4.9 H Living will/advanced directive/end of life care: Patient does have living will or advanced directive. Her designated power of attorney lawyer for health is Ms. Scar Helms. I had a long discussion with her and gave the clinical update. We discussed natural course of cirrhosis and its complication and liver cancer. She states he had appointment with Dr. Schwarz oncologist who wanted to do some radiation beads not sure exact mode of treatment. He was DNR CC hospice care before admission she wanted treatment of complications of liver cirrhosis and sepsis and go back to DNR CC. Of all the options given full code DNR CC arrest and DNR CC she opted for DNR CC and good with oxygen. She is agreeable for hospice consult and same informed to the welfare case worker and health and social care teacher. Patient does want artificial life support including intubation, tube feed, ventilator and/chest compression, central venous catheter, vasopressor and DC shock if needed Total time spent in [id number] encounter in discussion of advanced directive 17 minutes. Clinical Impression(s) from Imaging Studies Brain CT 05/06/23 17:39 IMPRESSION: Chronic involutional changes of the brain. KUB X-Ray 05/06/23 17:39 IMPRESSION: 2 left renal stone with ureteral stent but no definite ureteral stone. Chest X-Ray 05/06/23 18:12 IMPRESSION: Left lower lobe discoid atelectasis or scarring. Allergies/Procedures Done in Hospital Allergies acetaminophen [From Tylenol] Adverse Reaction (Verified 05/06/23 17:30) PT UNABLE TO RESPOND-NEEDS F/U codeine Adverse Reaction (Verified 05/06/23 17:30) PT UNABLE TO RESPOND-NEEDS F/U Type of Care/Length of Stay Estimated LOS: Convalescent Care Less Than 30 days Type of Care Needed: Intermediate Rehab Potential: Fair Prognosis: Fair Additional Orders/Day of Discharge Day of Discharge: 05/11/23 Dietary and Speech Recommendations Dietitian Recommendations/Changes: As medically able, rec HERMINIA 1800 mary alice controlled/ No Added Salt diet As medically able, rec 4 oz glucerna shake tid w/ medpass for increased nutrition if consumed. Discharge Plan Admission Admit Date/Time: 05/06/23 20:50 Attending Provider: Danish Larsen Primary Care Provider: Raul Magallon Consulting Providers: Eran Garcia; Boone Torres; Kelvin Cox Instructions Additional Instructions / Restrictions: Inpatient hospice care at [facility] Discharge Orders/Prescriptions Prescriptions: New insulin lispro [Humalog KwikPen Insulin] 100 unit/mL Insulin Pen See Protocol subcut 4X/DAYCM Qty: 0 0RF Protocol: 2. Sliding Scale Insulin Low-Med Dosing Condition: 150-209 mg/dl = 1 unit Condition: 210-269 mg/dl = 2 units Condition: 270-329 mg/dl = 3 units Condition: 330-389 mg/dl = 4 units Condition: 390-449 mg/dl = 5 units Condition: Greater than 449 call physician Protocol Text: - Use for Total Daily Dose of Insulin 28-36 units - Average size patients LOW MEDIUM DOSING ALGORITHM Xifaxan 550 mg Tablet 550 mg PO BID Qty: 0 0RF sulfamethoxazole-trimethoprim [Bactrim DS] 800-160 mg tablet 1 tab PO BID 7 Days Qty: 14 0RF Continued furosemide 20 mg tablet 20 mg PO BID mirtazapine [Remeron] 15 mg tablet 7.5 mg PO DAILY tamsulosin 0.4 mg capsule 0.4 mg PO QHS alfuzosin [Uroxatral] 10 mg tablet extended release 24 hr 10 mg PO DAILY Rx Instructions: administer after the same meal each day Changed lisinopril 20 mg tablet 10 mg PO BID 30 Days Qty: 0 0RF Hold Instructions: Hold it while patient is on Bactrim DS lactulose 10 gram/15 mL solution 30 ml PO TID Qty: 237 0RF insulin glargine [Lantus Solostar U-100 Insulin] 100 unit/mL (3 mL) insulin pen 10 unit subcut DAILY Qty: 15 0RF Held lorazepam [Ativan] 0.5 mg tablet 0.5 mg PO Q4H PRN (Reason: anxiety) Hold Instructions: Hold for confusion. buspirone 5 mg tablet 5 mg PO BID Hold Instructions: Hold for confusion. escitalopram oxalate [Lexapro] 10 mg tablet 10 mg PO DAILY Hold Instructions: Hold for confusion. oxycodone 5 mg tablet 5 mg PO Q6H PRN (Reason: pain/ sob) Hold Instructions: Hold for confusion. potassium chloride 20 mEq tablet extended release 20 meq PO DAILY Hold Instructions: Hold it while patient is on Bactrim DS trazodone 50 mg tablet 50 mg PO QHS Hold Instructions: Hold for confusion. Discontinued metformin 1,000 mg tablet 1,000 mg PO BID Referrals / Follow Up: Raul Magallon MD [Primary Care Provider] - Disposition Disposition (needs filled in before D/C Order can be placed): NonSkilled NH/Intermed Care (1) Sepsis Qualifiers: Sepsis acute organ dysfunction status: with acute organ dysfunction Sepsis type: sepsis due to unspecified organism Severe sepsis acute organ dysfunction type: encephalopathy Severe sepsis shock status: without septic shock Qualified Code(s): A41.9 - Sepsis, unspecified organism; R65.20 - Severe sepsis without septic shock; G93.40 - Encephalopathy, unspecified (3) UTI (urinary tract infection) Qualifiers: Hematuria presence: without hematuria Urinary tract infection type: acute cystitis Qualified Code(s): N30.00 - Acute cystitis without hematuria
[2023-05-11] MEDS: Insulin Glargine-YFGN 100 UNIT/ML Pen 10 UNIT SC (09:10)
--- NOTE | 2023-05-11 09:11 | CASEMGMT ---
Discharge Planning Clinical updates, discharge status and need for hospice consult [facility]. Palmira Tavera, Discharge Planning Asst.
[2023-05-11 09:13] VITALS: BP 151/81; PULSE 77; RESP 16; TEMP 36.2; O2SAT 95
--- NOTE | 2023-05-11 09:20 | CASEMGMT ---
SW spoke with physician and he spoke with patient's daughter Scar. Scar was going to talk with her sister regarding Hospice IPU vs back to [facility]. SW called Scar and she and her sister would like patient to go back to [facility]. They feel he does not do well with change. SW let Scar know he will go today and we can let her know when a time has been arranged. JANNETH notified physician as well as Hilda at [facility]. JANNETH also sent d/c orders to Hilda at [facility]. Plan: d/c back to [place] under intermediate level of care on Hospice with [facility]. Dagmar Mora INSERTING PRESS OPERATOR CINDER CRANE OPERATOR
--- NOTE | 2023-05-11 10:20 | PCM.PN.ID ---
ID ID: Route of nutrition/ use of supplements: [] Nutritional Intake: [] IV Site: [] [place] Catheter: [] Patient remains weak and minimally responsive. On parenteral vancomycin plus ceftriaxone. No fevers. Most recent blood cultures remain negative. Currently n.p.o. because of risk of aspiration. Generally weak does not appear acutely ill. Chronically ill-appearing man. Heart exam S1-S2 no murmurs appreciated lungs are clear. Abdomen is obese but soft Assessment & Plan Assessment/Plan (1) MRSA bacteremia: PLAN: Continue parenteral vancomycin for treatment of his MRSA bacteremia. There has been discussion of hospice care and home hospice. I discussed the management with the hospitalist this morning.
--- NOTE | 2023-05-11 10:56 | PCM.DC.SUM ---
Providers Date of Admission: 05/06/23 Date of Discharge: 05/11/23 Primary Care Physician: Dr. Raul Magallon MD Consultations 05/06/23 21:26 Consult: Legal Intern / Pulmonary Medicine Routine Consulting Provider: Boone Torres Reason for Consult: Sepsis EMERGENT Consult: No Notified: Yes Date Notified: 05/06/23 Time Notified: 21:01 Method of Notification: Text 05/07/23 15:19 Consult: Infectious Disease Routine Consulting Provider: Kelvin Cox Reason for Consult: GPC in blood culture, Sepsis, UTI? EMERGENT Consult: No Notified: Yes Date Notified: 05/07/23 Time Notified: 09:19 Method of Notification: Verbal Reason For Visit: SEPSIS Diagnosis Discharge Diagnosis (1) Sepsis: Status: Acute Code(s): A41.9 - Sepsis, unspecified organism Qualifiers: Sepsis acute organ dysfunction status: with acute organ dysfunction Sepsis type: sepsis due to unspecified organism Severe sepsis acute organ dysfunction type: encephalopathy Severe sepsis shock status: without septic shock Qualified Code(s): A41.9 - Sepsis, unspecified organism; R65.20 - Severe sepsis without septic shock; G93.40 - Encephalopathy, unspecified (2) Encephalopathy acute: Status: Acute Code(s): G93.40 - Encephalopathy, unspecified (3) UTI (urinary tract infection): Status: Acute Code(s): N39.0 - Urinary tract infection, site not specified Qualifiers: Hematuria presence: without hematuria Urinary tract infection type: acute cystitis Qualified Code(s): N30.00 - Acute cystitis without hematuria Plan Patient was brought from long term and altered mental status, confused state for 6 days prior to admission. He has history of chronic hep B, chronic hep C, cirrhosis with liver cancer. Patient is lethargic and worsening of shortness of breath. Couple months ago after episode of urinary stone. 1. Sepsis, exact focus unclear but possibly due to UTI: The patient presented with sepsis with clinical indicators of tachycardia, tachypnea due to unclear focus most probably UTI with acute sepsis-related organ dysfunction as evidenced by lactic acidosis 0.1 and total bilirubin, 2.7 and coagulopathy INR 1.5 but patient also has history of liver cancer and decompensated cirrhosis UA is abnormal, WBC more than 100 cells, nitrite positive. Blood culture both aerobic and anaerobic bottles positive for GPC in clusters. Patient empirically started on IV ceftriaxone and vancomycin. Legal Intern and ID consulted. Patient had history of complicated UTI, kidney stone that required stenting. 05/09: MRSA bacteremia. Continue parenteral vancomycin closely follow renal function. Repeat blood culture ordered. Urine culture shows Proteus mirabilis and Staph aureus. Blood culture shows MRSA. Currently on ceftriaxone to cover Proteus from urine culture. 05/10: ID follow-up reviewed. Patient on IV vancomycin and ceftriaxone. 05/11: I talked to the patient's daughter and she agrees for inpatient hospice care. Prognosis is poor and patient is hospice appropriate. Discussed with the ID Dr. Huff and neonatal social worker. Repeat blood culture on 05/08 is negative for 48 hours. With patient in very low functional status, minimally responsive, encephalopathy aggressive management with IV PICC line and IV antibiotic will be too much and therefore patient prescribed 7 days of Bactrim DS. Hold lisinopril, potassium supplements until he completes Bactrim DS. Patient is being discharged to [facility]. 2. Acute encephalopathy multifactorial probably due to hepatic encephalopathy/metabolic/infectious encephalopathy from sepsis: Serum ammonia level normal but that has not exact indicator for clinical encephalopathy. Patient is n.p.o. we will start on diet mainly feeding by nursing staff because of mental alertness. Hold all sedating medications. Lactulose ordered. 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 It does not show acute intracranial abnormality. 05/09: No significant improvement in mental function. Lactulose ordered. 05/10: Patient is more awake and alert. Continue lactulose and Xifaxan. DC IV fluid. Neuroscience Director Na consult encourage oral diet. 05/11: Encephalopathy is better on lactulose and Xifaxan but it is fluctuating. Patient is irritable, sometimes swings his hands and legs, but overall sensorium is better.Continue lactulose and Xifaxan. Fluctuating level of encephalopathy due to hepatic encephalopathy 3. History of chronic hep C, decompensated cirrhosis with ascites, hepatic encephalopathy and liver cancer: Exact natural course of the disease, tumor biology and treatment unclear 05/11: After talking with her daughter she said he completed treatment for chronic hepatitis C in 2018 for about 3 months. He does not have history of chronic hepatitis B. [facility] asking for hepatitis panel but I think it is not needed or appropriate when patient is under hospice status. 4.Kidney dysfunction, unclear JOEL or CKD unclear staging: Patient admitted with BUN/creatinine 18/1.34. Repeat creatinine shows improvement 1.14. KUB x-ray shows 2 left renal stone with ureteral stent but no definite ureteral stone. Lasix on hold. Avoid nephrotoxins. Monitor kidney function, intake and output and electrolytes. 05/10: Creatinine got better. JOEL most likely prerenal from third volume spacing. 5. Acute anemia on anemia of chronic anemia, decompensated cirrhosis: Patient hemoglobin dropped from 11.1-8.4. Power of medical assisting instructor is concerned and wanted PRBC transfusion but I said it is not recommended below hemoglobin 7 as per blood bank rule. It will add up more fluid overload and increase portal hypertension. Nevertheless, iron work-up reticulocyte panel, B12 and folic acid ordered. Iron infusion ordered after blood draw. Lovenox discontinued early. 05/11: Ferritin 436, TIBC low overall suggestive of anemia of chronic disease. B12 level normal. Folate low 2.2. Prescription for folate given. 5. Diabetes mellitus type II: Glucose 178 in BMP. Accu-Cheks every 6 hourly. DVT prophylaxis: Subcu Lovenox ordered. Discharge medication reconciliation done. Discharge follow-up instructions completed. Discharge process discussed with the patient and all questions were answered to patient's satisfaction. Total time spent, exact 35 minutes on discharge meds reconciliation, examination, coordination of care with nurses and ancillary staff, review of imaging and blood test and discussion with the patient on follow-up instructions. Discharge to inpatient hospice care. Microbiology Past 72 Hours 05/06/23 19:25 Urine, Clean Catch Urine Culture - Final Proteus mirabilis Meth. resistant Staph. aureus 05/08/23 10:00 Blood Culture (Wb) - Anticubital Left Blood Culture - Preliminary No growth in 48 hours. 05/06/23 17:51 Blood Culture (Wb) - Left Wrist Blood Culture - Final Staphylococcus aureus 05/06/23 17:48 Blood Culture (Wb) - Anticubital Right Bacteria Detection (PCR) - Final Meth. resistant Staph. aureus 05/06/23 17:48 Blood Culture (Wb) - Anticubital Right Blood Culture - Final Meth. resistant Staph. aureus Laboratory Results 05/09/23 08:30: Vitamin B12 762 05/10/23 04:56: Retic Count 3.38 H, Immature Retic Fraction 20.20 H, Retic Hgb Equivalent 34.5, Iron Cancelled, TIBC 164 L, Iron Saturation Cancelled, Ferritin 436 H, Folate 2.20 L, Hepatitis A IgM Ab Pending, Hep Bs Antigen Pending, Hep B Core Total Ab Pending, Hep B Core IgM Ab Pending, Hepatitis C Ab (EIA) Pending, Miscellaneous Test 05/10/23 13:33: POC Glucose 141 H 05/10/23 16:40: POC Glucose 157 H 05/10/23 21:33: POC Glucose 145 H 05/10/23 22:27: Vancomycin Trough 23.2 H 05/11/23 05:15: WBC 5.9, RBC 2.81 L, Hgb 8.7 L, Hct 27.7 L, MCV 98.6 H, MCH 31.0, MCHC 31.4 L, RDW Std Deviation 58.5 H, RDW Coeff of Ani 16.4 H, Plt Count 146 L, MPV 9.2, Immature Gran % (Auto) 0.700, Neut % (Auto) 82.7 H, Lymph % (Auto) 6.0 L, Plumas % (Auto) 8.4, Eos % (Auto) 1.7, Baso % (Auto) 0.5, Absolute Neuts (auto) 4.8, Absolute Lymphs (auto) 0.35 L, Nucleated RBC % 0, Differential Comment SCANNED, Sodium 140, Potassium 4.0, Chloride 114 H, Carbon Dioxide 22.0, Anion Gap 4 L, BUN 30 H, Creatinine 1.11, Estim Creat Clear Calc 64.19, Est GFR (MDRD) Af Amer 86, Est GFR (MDRD) Non-Af 71, BUN/Creatinine Ratio 27.0 H, Glucose 138 H, Calcium 9.3, Total Bilirubin 1.20 H, Direct Bilirubin 0.54 H, AST 38 H, ALT 26, Alkaline Phosphatase 85, Total Protein 6.5, Albumin 1.3 L, Globulin 5.2 H 05/11/23 10:30: Random Vancomycin 15.8 H Living will/advanced directive/end of life care: Patient does have living will or advanced directive. Her designated power of medical assisting instructor for health is Ms. Scar Helms. I had a long discussion with her and gave the clinical update. We discussed natural course of cirrhosis and its complication and liver cancer. She states he had appointment with Dr. Schwarz oncologist who wanted to do some radiation beads not sure exact mode of treatment. He was DNR CC hospice care before admission she wanted treatment of complications of liver cirrhosis and sepsis and go back to DNR CC. Of all the options given full code DNR CC arrest and DNR CC she opted for DNR CC and good with oxygen. She is agreeable for hospice consult and same informed to the rn field case manager and neonatal social worker. Patient does want artificial life support including intubation, tube feed, ventilator and/chest compression, central venous catheter, vasopressor and DC shock if needed Total time spent in [id number] encounter in discussion of advanced directive 17 minutes. Clinical Impression(s) from Imaging Studies Brain CT 05/06/23 17:39 IMPRESSION: Chronic involutional changes of the brain. KUB X-Ray 05/06/23 17:39 IMPRESSION: 2 left renal stone with ureteral stent but no definite ureteral stone. Chest X-Ray 05/06/23 18:12 IMPRESSION: Left lower lobe discoid atelectasis or scarring. Medications at Discharge Home Medications alfuzosin 10 mg tablet,extended release 24 hr (Uroxatral) 10 mg PO DAILY 05/06/23 buspirone 5 mg tablet 5 mg PO BID 05/06/23 escitalopram oxalate 10 mg tablet (Lexapro) 10 mg PO DAILY 05/06/23 lorazepam 0.5 mg tablet (Ativan) 0.5 mg PO Q4H PRN anxiety 05/06/23 mirtazapine 15 mg tablet (Remeron) 7.5 mg PO DAILY 05/06/23 oxycodone 5 mg tablet 5 mg PO Q6H PRN pain/ sob 05/06/23 potassium chloride 20 mEq tablet,extended release 20 meq PO DAILY 05/06/23 tamsulosin 0.4 mg capsule 0.4 mg PO QHS 05/06/23 trazodone 50 mg tablet 50 mg PO QHS 05/06/23 insulin glargine 100 unit/mL (3 mL) subcutaneous pen (Lantus Solostar U-100 Insulin) 10 unit (0.1 mL) subcut DAILY #15 mL 05/11/23 insulin lispro 100 unit/mL subcutaneous pen (Humalog KwikPen (U-100) Insulin) See Protocol subcut 4X/DAYCM #0 mL 05/11/23 lactulose 10 gram/15 mL oral solution 30 ml PO TID #237 mL 05/11/23 lisinopril 20 mg tablet 10 mg (1/2 x 20 mg) PO BID 30 days #0 tabs 05/11/23 rifaximin 550 mg tablet (Xifaxan) 550 mg PO BID #0 tabs 05/11/23 sulfamethoxazole 800 mg-trimethoprim 160 mg tablet (Bactrim DS) 1 tab PO BID 7 days #14 tabs 05/11/23 Physical Exam Narrative Patient is more awake. His voice is better and he can tell his name and date of .. He winces when his legs are moved and tries to swing his hands and legs. Patient is n.p.o. and speech therapist working on him.. I talked to the patient's daughter power of medical assisting instructor for health. Physical exam General: Awake. Disoriented to time. Not aware of the situation or circumstances. HEENT: Mild icterus. Atraumatic, PERRLA, EOMI, Normocephalic Oral: Oral mucosa dry. No Gingival or Mucosal Lesions/ Ulcerations Neck: Supple, No JVD, Negative Carotid Bruits Lungs: Air entry diminished in bilateral lung bases. No crepitation/rhonchi Cardiovascular: Sinus rhythm, Normal S1, Normal S2, No murmurs Abdomen: Bowel Sounds sluggish, soft, mild nonspecific tenderness. Distended with ascites, : Voiding urine. No renal angle tenderness. No suprapubic tenderness. Extremities: Bilateral 2+ pitting below knee legs edema Skin: No rashes, No breakdown Musculoskeletal: Tenderness in both lower legs, ROM limited not cooperative but Neurological: Confused disoriented, detailed neuro exam unobtainable Psych/Mental Status: Fluctuating encephalopathy. Flat affect. Weight / BMI Weight Weight: 195 lb 1.745 oz Body Mass Index (BMI) 29.6 ABG / Lab / Microbiology Data 05/11/23 05:15 05/11/23 05:15 Laboratory: Laboratory Results - last 24 hr 05/09/23 08:30: Vitamin B12 762 05/10/23 04:56: Retic Count 3.38 H, Immature Retic Fraction 20.20 H, Retic Hgb Equivalent 34.5, Iron Cancelled, TIBC 164 L, Iron Saturation Cancelled, Ferritin 436 H, Folate 2.20 L, Miscellaneous Test 05/10/23 13:33: POC Glucose 141 H 05/10/23 16:40: POC Glucose 157 H 05/10/23 21:33: POC Glucose 145 H 05/10/23 22:27: Vancomycin Trough 23.2 H 05/11/23 05:15: WBC 5.9, RBC 2.81 L, Hgb 8.7 L, Hct 27.7 L, MCV 98.6 H, MCH 31.0, MCHC 31.4 L, RDW Std Deviation 58.5 H, RDW Coeff of Ani 16.4 H, Plt Count 146 L, MPV 9.2, Immature Gran % (Auto) 0.700, Neut % (Auto) 82.7 H, Lymph % (Auto) 6.0 L, Plumas % (Auto) 8.4, Eos % (Auto) 1.7, Baso % (Auto) 0.5, Absolute Neuts (auto) 4.8, Absolute Lymphs (auto) 0.35 L, Nucleated RBC % 0, Differential Comment SCANNED, Sodium 140, Potassium 4.0, Chloride 114 H, Carbon Dioxide 22.0, Anion Gap 4 L, BUN 30 H, Creatinine 1.11, Estim Creat Clear Calc 64.19, Est GFR (MDRD) Af Amer 86, Est GFR (MDRD) Non-Af 71, BUN/Creatinine Ratio 27.0 H, Glucose 138 H, Calcium 9.3, Total Bilirubin 1.20 H, Direct Bilirubin 0.54 H, AST 38 H, ALT 26, Alkaline Phosphatase 85, Total Protein 6.5, Albumin 1.3 L, Globulin 5.2 H Microbiology: Microbiology 05/06/23 19:25 Urine, Clean Catch Urine Culture - Final Proteus mirabilis Meth. resistant Staph. aureus 05/08/23 10:00 Blood Culture (Wb) - Anticubital Left Blood Culture - Preliminary No growth in 48 hours. 05/06/23 17:51 Blood Culture (Wb) - Left Wrist Blood Culture - Final Staphylococcus aureus 05/06/23 17:48 Blood Culture (Wb) - Anticubital Right Bacteria Detection (PCR) - Final Meth. resistant Staph. aureus 05/06/23 17:48 Blood Culture (Wb) - Anticubital Right Blood Culture - Final Meth. resistant Staph. aureus 05/06/23 17:47 Nasal Secretion SARS-CoV-2 & FLU Antigen (Rapid) - Final Meaningful Use Info Meaningful Use Diagnoses (Choose all that apply): None applicable Discharge Plan Admission Admit Date/Time: 05/06/23 20:50 Primary Reason for Your Visit: Sepsis from MRSA bacteremia, liver cancer, hepatic encephalopathy, Attending Provider: Danish Larsen Primary Care Provider: Raul Magallon Consulting Providers: Eran Garcia; Boone Torres; Kelvin Cox Instructions Additional Instructions / Restrictions: Inpatient hospice care at [facility] Discharge Orders/Prescriptions Prescriptions: New insulin lispro [Humalog KwikPen Insulin] 100 unit/mL Insulin Pen See Protocol subcut 4X/DAYCM Qty: 0 0RF Protocol: 2. Sliding Scale Insulin Low-Med Dosing Condition: 150-209 mg/dl = 1 unit Condition: 210-269 mg/dl = 2 units Condition: 270-329 mg/dl = 3 units Condition: 330-389 mg/dl = 4 units Condition: 390-449 mg/dl = 5 units Condition: Greater than 449 call physician Protocol Text: - Use for Total Daily Dose of Insulin 28-36 units - Average size patients LOW MEDIUM DOSING ALGORITHM Xifaxan 550 mg Tablet 550 mg PO BID Qty: 0 0RF sulfamethoxazole-trimethoprim [Bactrim DS] 800-160 mg tablet 1 tab PO BID 7 Days Qty: 14 0RF Continued mirtazapine [Remeron] 15 mg tablet 7.5 mg PO DAILY tamsulosin 0.4 mg capsule 0.4 mg PO QHS alfuzosin [Uroxatral] 10 mg tablet extended release 24 hr 10 mg PO DAILY Rx Instructions: administer after the same meal each day Changed lisinopril 20 mg tablet 10 mg PO BID 30 Days Qty: 0 0RF Hold Instructions: Hold it while patient is on Bactrim DS lactulose 10 gram/15 mL solution 30 ml PO TID Qty: 237 0RF insulin glargine [Lantus Solostar U-100 Insulin] 100 unit/mL (3 mL) insulin pen 10 unit subcut DAILY Qty: 15 0RF Held lorazepam [Ativan] 0.5 mg tablet 0.5 mg PO Q4H PRN (Reason: anxiety) Hold Instructions: Hold for confusion. buspirone 5 mg tablet 5 mg PO BID Hold Instructions: Hold for confusion. escitalopram oxalate [Lexapro] 10 mg tablet 10 mg PO DAILY Hold Instructions: Hold for confusion. oxycodone 5 mg tablet 5 mg PO Q6H PRN (Reason: pain/ sob) Hold Instructions: Hold for confusion. potassium chloride 20 mEq tablet extended release 20 meq PO DAILY Hold Instructions: Hold it while patient is on Bactrim DS trazodone 50 mg tablet 50 mg PO QHS Hold Instructions: Hold for confusion. Discontinued furosemide 20 mg tablet 20 mg PO BID metformin 1,000 mg tablet 1,000 mg PO BID Referrals / Follow Up: Raul Magallon MD [Primary Care Provider] - Disposition Disposition (needs filled in before D/C Order can be placed): NonSkilled NH/Intermed Care Charges/Coding Visit Charges Inpatient E&M: 88758 Disch Hosp >30min
[2023-05-11 11:17] LABS: Vancomycin, Random Level 15.8 ug/mL (0.0-15.0)
--- NOTE | 2023-05-11 11:35 | PHA.DC.MR.R ---
Pharmacy [place] Med Reconciliation Pharmacy Service has performed discharge medication reconciliation for this patient upon transfer to [facility]. The patient's discharge medication list was reviewed for discrepancies and discrepancies were resolved. Medications at Discharge Home Medications alfuzosin 10 mg tablet,extended release 24 hr (Uroxatral) 10 mg PO DAILY 05/06/23 buspirone 5 mg tablet 5 mg PO BID 05/06/23 escitalopram oxalate 10 mg tablet (Lexapro) 10 mg PO DAILY 05/06/23 lorazepam 0.5 mg tablet (Ativan) 0.5 mg PO Q4H PRN anxiety 05/06/23 mirtazapine 15 mg tablet (Remeron) 7.5 mg PO DAILY 05/06/23 oxycodone 5 mg tablet 5 mg PO Q6H PRN pain/ sob 05/06/23 potassium chloride 20 mEq tablet,extended release 20 meq PO DAILY 05/06/23 tamsulosin 0.4 mg capsule 0.4 mg PO QHS 05/06/23 trazodone 50 mg tablet 50 mg PO QHS 05/06/23 insulin glargine 100 unit/mL (3 mL) subcutaneous pen (Lantus Solostar U-100 Insulin) 10 unit (0.1 mL) subcut DAILY #15 mL 05/11/23 insulin lispro 100 unit/mL subcutaneous pen (Humalog KwikPen (U-100) Insulin) See Protocol subcut 4X/DAYCM #0 mL 05/11/23 lactulose 10 gram/15 mL oral solution 30 ml PO TID #237 mL 05/11/23 lisinopril 20 mg tablet 10 mg (1/2 x 20 mg) PO BID 30 days #0 tabs 05/11/23 rifaximin 550 mg tablet (Xifaxan) 550 mg PO BID #0 tabs 05/11/23 sulfamethoxazole 800 mg-trimethoprim 160 mg tablet (Bactrim DS) 1 tab PO BID 7 days #14 tabs 05/11/23
--- NOTE | 2023-05-11 11:38 | CASEMGMT ---
Discharge Planning Discharge orders, signed med list, and transport time sent to [facility]. [facility] will transport by cot at 1:30p. Patients daughter, nursing and SW notified. Palmira Tavera, Discharge Planning Asst.
[2023-05-11 12:00] VITALS: BP 133/80; PULSE 80; RESP 16; TEMP 35.9; O2SAT 96
--- NOTE | 2023-05-11 12:04 | PCM.RX.CS ---
Consult Antibiotic Management Pharmacy has been consulted to manage selected antiobiotic: Vancomycin Type of Intervention Type of Consult: Follow-up Suspected Infection Suspected Infection: Other (UTI) Prior Doses of Antibiotics Prior Doses of Antibiotics Received/Current Regimen: 750 MG Q12H X 3 doses with last dose on 05/10/23 @ 1018 Labs Labs: Sodium 140 mmol/L (136-145) 05/11/23 05:15 Potassium 4.0 mmol/L (3.5-5.1) 05/11/23 05:15 Chloride 114 mmol/L (98-107) H 05/11/23 05:15 Carbon Dioxide 22.0 mmol/L (21.0-32.0) 05/11/23 05:15 Anion Gap 4 (5-15) L 05/11/23 05:15 BUN 30 mg/dL (7-18) H 05/11/23 05:15 Creatinine 1.11 mg/dL (0.70-1.30) 05/11/23 05:15 Est GFR (MDRD) Af Amer 86 mL/min (>60) 05/11/23 05:15 Est GFR (MDRD) Non-Af 71 mL/min (>60) 05/11/23 05:15 BUN/Creatinine Ratio 27.0 RATIO (10-20) H 05/11/23 05:15 Glucose 138 mg/dL (74-106) H 05/11/23 05:15 Vancomycin Trough 23.2 ug/mL (5.0-15.0) H 05/10/23 22:27 Random Vancomycin 15.8 ug/mL (0.0-15.0) H 05/11/23 10:30 Microbiology Microbiology: Microbiology 05/06/23 19:25 Urine, Clean Catch Urine Culture - Final Proteus mirabilis Meth. resistant Staph. aureus 05/08/23 10:00 Blood Culture (Wb) - Anticubital Left Blood Culture - Preliminary No growth in 48 hours. 05/06/23 17:51 Blood Culture (Wb) - Left Wrist Blood Culture - Final Staphylococcus aureus 05/06/23 17:48 Blood Culture (Wb) - Anticubital Right Bacteria Detection (PCR) - Final Meth. resistant Staph. aureus 05/06/23 17:48 Blood Culture (Wb) - Anticubital Right Blood Culture - Final Meth. resistant Staph. aureus 05/06/23 17:47 Nasal Secretion SARS-CoV-2 & FLU Antigen (Rapid) - Final Dosing Weight Weight used for dosin kg Goal Trough Goal Trough: 15-20 mcg/mL Pharmacy Plan for Drug Dosing Pharmacy Plan for Drug Dosing: Vancomycin random this AM 15.8, will reduce dose to 1250 mg Q24H starting at 1300 based on previous levels. Trough prior to 3rd dose. Pharmacy Service will continue to monitor and adjust dosing as required. Follow-Up Labs Follow-Up Labs: Trough: Vancomycin Date/Time Labs Ordered Labs to be done on [date and time ordered]: 05/13/23 @ 2250
--- NOTE | 2023-05-11 12:10 | NURSING ---
report called to virgilio at [facility]
[2023-05-11 12:33] LABS: Bedside Glucose 110 mg/dL (74-106)
[2023-05-11 12:33] LABS: Bedside Glucose 121 mg/dL (74-106)
--- NOTE | 2023-05-11 13:25 | CASEMGMT ---
Discharge Planning Covid results sent to [place] via [facility]. Palmira Tavera, Discharge Planning Asst.
--- NOTE | 2023-05-11 14:00 | CASEMGMT ---
Discharge Planning [facility] is running approx 2hrs behind. Pickup now scheduled for 3:30. [facility] updated via [facility]. Palmira Tavera, Discharge Planning Asst.
[2023-05-11] MEDS: Lactulose 20 GM/30 ML UDC 10 GM PO (15:16)
--- NOTE | 2023-05-11 16:34 | NURSING ---
report called to james at [facility]
== END 2023-05-11 17:18 | disposition intermediate care facility (04) | DRG 871 ==
LOC: ED 20:30 → ICU 22:04 → PCU 05-07 13:44
PROVIDERS: Family Medicine; Internal Medicine Infectious Disease; Admitting Provider Hospitalist; Emergency Provider Emergency Medicine; PCP Family Medicine; Visit Provider Internal Medicine
DX: A41.02 Sepsis due to Methicillin resistant Staphylococcus aureus (principal); G93.41 Metabolic encephalopathy; E87.20 Acidosis, unspecified; I69.354 Hemiplegia and hemiparesis following cerebral infarction affecting left non-dominant side; N17.9 Acute kidney failure, unspecified; C22.0 Liver cell carcinoma; B18.1 Chronic viral hepatitis B without delta-agent; R18.8 Other ascites; N30.00 Acute cystitis without hematuria; K76.82 Hepatic encephalopathy; D63.8 Anemia in other chronic diseases classified elsewhere; K74.69 Other cirrhosis of liver; E11.9 Type 2 diabetes mellitus without complications; R65.20 Severe sepsis without septic shock; Z79.4 Long term (current) use of insulin; I10 Essential (primary) hypertension; F17.200 Nicotine dependence, unspecified, uncomplicated; B96.4 Proteus (mirabilis) (morganii) as the cause of diseases classified elsewhere; Z66 Do not resuscitate; Z79.84 Long term (current) use of oral hypoglycemic drugs; Z79.899 Other long term (current) drug therapy; Z86.19 Personal history of other infectious and parasitic diseases; Z86.16 Personal history of COVID-19
CPT/HCPCS: 36415; 70450; 71045; 74018; 80048; 80053; 80074; 80076; 80202; 81001; 82140; 82607; 82728; 82746; 82962; 83550; 83605; 83615; 84443; 84484; 85025; 85045; 85610; 85730; 86704; 87040; 87077; 87086; 87088; 87149; 87186; 87426; 87428; 92526; 92610; 93005; 93306; 97802; 99285; J7030; J7040; J7050; A4216; J2405; J2916